=== PATIENT | male | born 1950 | race Caucasian/White ===

== ENCOUNTER 2019-06-17 09:16 | Inpatient (IN) | payer MEDICARE, OTHER ==
[2019-06-17] MEDS ORDERED: SODIUM CHLORIDE 0.9% 1,000 ML IV STA (09:57)
--- NOTE | 2019-06-17 10:00 | ED ---
General Adult HPI - General Chief complaint: Arrhythmia/Palpitations Stated complaint: weakness, fatigue Time Seen by Provider: 06/17/19 09:30 Source: patient Mode of arrival: wheelchair Limitations: no limitations - History of Present Illness Initial comments: Dictation was produced using [employer] dictation software. please excuse any g rammatical, word or spelling errors. Chief Complaint: 68-year-old male with past medical history of dysrhythmia presents with instruction from basket sorter to come to the emergency department for medical evaluation. History of Present Illness: Patient is a 68-year-old male. Patient states he is recently relocated from [place]. Patient has a history of atrial fibrillation, CVA and psychosis of the lungs. Patient had episode of dysrhythmia over the last couple months for which she went to the emergency department and received an injection with improvement of his symptoms. Patient wears a heart monitor. He has had a heart monitor for approximately 4 weeks. Patient received a call from his basket sorter in sending her to come to the emergency department for abnormal heart monitor rhythms. She does not have established care here in town at the moment. Just recently moved to report here on the first month. Last couple days he's been feeling more weak than usual. She feels dehydrated. Patient denies any chest pain or diaphoresis. The ROS documented in this emergency department record has been reviewed and confirmed by me. Those systems with pertinent positive or negative responses have been documented in the HPI. All other systems are other negative and/or no ncontributory. PHYSICAL EXAM: General Impression: Alert and oriented x3, not in acute distress HEENT: Normocephalic atraumatic, extra-ocular movements intact, pupils equal and reactive to light bilaterally, dry mucous membranes Cardiovascular: Heart regular rate and rhythm, S1&S2 audible, no murmurs, rubs or gallops Chest: Lungs clear to auscultation bilaterally, no rhonchi, no wheeze, no rales Abdomen: Bowel sounds present, abdomen soft, non-tender, non-distended, no organomegaly Musculoskeletal: Pulses present and equal in all extremities, no peripheral edema Motor: no focal deficits noted Neurological: CN II-XII grossly intact, no focal motor or sensory deficits noted Skin: Intact with no visualized rashes Psych: Normal affect and mood ED course: male presents with dysrhythmia. Currently wears a heart monitor was called by his basket sorter come to the emergency department for medical evaluation. Vital signs upon arrival are within acceptable limits. Laboratory evaluation obtained. CBC, coag panel unremarkable. Metabolic panel is negative. Patient does have troponin elevation of 0.069. He does not have any chest pain at this time. No shortness of breath or any ACS equivalent symptoms. We were able to get a faxed report of his Holter monitor. It appears that patient had an episode of ventricular tachycardia 425 beats at approximately 10:08 PM. Given elevated troponin and evidence of white count this tachycardia seen on his Holter monitor will plan to have patient admitted to the hospital for cardiology consultation. There does not appear to be any electrolyte abnormalities to have causes at this time. Patient's medications were reviewed he is currently on metoprolol and. dabigatran. She given aspirin for elevated troponin started on heparin for concern of NSTEMI. EKG interpretation: Ventricular rate 76, normal sinus rhythm,. Interval 200, QRS 86, QTC 393. No old EKG for comparison. Patient has Q-wave in lead 3 and aVF. There is a T-wave inversion in lead 3. - Related Data Home Medications Medication Instructions Recorded Confirmed Atorvastatin [Lipitor] 40 mg PO HS 06/17/19 06/17/19 Dabigatran [Pradaxa] 150 mg PO BID 06/17/19 06/17/19 Metoprolol Tartrate [Lopressor] 25 mg PO BID 06/17/19 06/17/19 Allergies Allergy/AdvReac Type Severity Reaction Status Date / Time Penicillins Allergy Unknown Verified 06/17/19 09:50 Review of Systems ROS Statement: Those systems with pertinent positive or pertinent negative responses have been documented in the HPI. ROS Other: All systems not noted in ROS Statement are negative. Past Medical History Past Medical History: Atrial Fibrillation, CVA/TIA Additional Past Medical History / Comment(s): SARCOSIS OF LUNGS History of Any Multi-Drug Resistant Organisms: None Reported Past Surgical History: No Surgical Hx Reported Past Psychological History: No Psychological Hx Reported Smoking Status: Never smoker Past Alcohol Use History: None Reported Past Drug Use History: None Reported General Exam Limitations: no limitations Course Vital Signs 06/17/19 09:19 Temperature 98.5 F Pulse Rate 89 Respiratory 16 Rate Blood Pressure 143/91 O2 Sat by Pulse 93 L Oximetry Medical Decision Making - Lab Data Result diagrams: 06/17/19 09:51 06/17/19 09:51 Lab Results 06/17/19 06/17/19 06/17/19 Range/Units 09:51 09:51 09:51 WBC 8.3 (3.8-10.6) k/uL RBC 4.30 (4.30-5.90) m/uL Hgb 13.2 (13.0-17.5) gm/dL Hct 39.6 (39.0-53.0) % MCV 92.1 (80.0-100.0) fL MCH 30.8 (25.0-35.0) pg MCHC 33.4 (31.0-37.0) g/dL RDW 12.7 (11.5-15.5) % Plt Count 413 (150-450) k/uL Neutrophils % 83 % Lymphocytes % 9 % Monocytes % 5 % Eosinophils % 1 % Basophils % 0 % Neutrophils # 6.9 (1.3-7.7) k/uL Lymphocytes # 0.7 L (1.0-4.8) k/uL Monocytes # 0.4 (0-1.0) k/uL Eosinophils # 0.1 (0-0.7) k/uL Basophils # 0.0 (0-0.2) k/uL PT 11.1 (9.0-12.0) sec INR 1.1 (<1.2) APTT 27.9 (22.0-30.0) sec Sodium 139 (137-145) mmol/L Potassium 4.9 (3.5-5.1) mmol/L Chloride 105 (98-107) mmol/L Carbon Dioxide 22 (22-30) mmol/L Anion Gap 12 mmol/L BUN 14 (9-20) mg/dL Creatinine 0.78 (0.66-1.25) mg/dL Est GFR (CKD-EPI)AfAm >90 (>60 ml/min/1.73 sqM) Est GFR (CKD-EPI)NonAf >90 (>60 ml/min/1.73 sqM) Glucose 109 H (74-99) mg/dL Calcium 9.3 (8.4-10.2) mg/dL Magnesium 2.1 (1.6-2.3) mg/dL Total Bilirubin 1.0 (0.2-1.3) mg/dL AST 71 H (17-59) U/L ALT 102 H (21-72) U/L Alkaline Phosphatase 219 H (38-126) U/L Troponin I (0.000-0.034) ng/mL Total Protein 7.1 (6.3-8.2) g/dL Albumin 3.7 (3.5-5.0) g/dL 06/17/19 Range/Units 09:51 WBC (3.8-10.6) k/uL RBC (4.30-5.90) m/uL Hgb (13.0-17.5) gm/dL Hct (39.0-53.0) % MCV (80.0-100.0) fL MCH (25.0-35.0) pg MCHC (31.0-37.0) g/dL RDW (11.5-15.5) % Plt Count (150-450) k/uL Neutrophils % % Lymphocytes % % Monocytes % % Eosinophils % % Basophils % % Neutrophils # (1.3-7.7) k/uL Lymphocytes # (1.0-4.8) k/uL Monocytes # (0-1.0) k/uL Eosinophils # (0-0.7) k/uL Basophils # (0-0.2) k/uL PT (9.0-12.0) sec INR (<1.2) APTT (22.0-30.0) sec Sodium (137-145) mmol/L Potassium (3.5-5.1) mmol/L Chloride (98-107) mmol/L Carbon Dioxide (22-30) mmol/L Anion Gap mmol/L BUN (9-20) mg/dL Creatinine (0.66-1.25) mg/dL Est GFR (CKD-EPI)AfAm (>60 ml/min/1.73 sqM) Est GFR (CKD-EPI)NonAf (>60 ml/min/1.73 sqM) Glucose (74-99) mg/dL Calcium (8.4-10.2) mg/dL Magnesium (1.6-2.3) mg/dL Total Bilirubin (0.2-1.3) mg/dL AST (17-59) U/L ALT (21-72) U/L Alkaline Phosphatase (38-126) U/L Troponin I 0.069 H* (0.000-0.034) ng/mL Total Protein (6.3-8.2) g/dL Albumin (3.5-5.0) g/dL Disposition Clinical Impression: Ventricular tachycardia, Elevated troponin Disposition: ADMITTED IP TO THIS HOSP Condition: Fair Referrals: None,Stated [Primary Care Provider] - 1-2 days Decision Time: 12:45
[2019-06-17 10:36] LABS: INR 1.1 (<1.2); Partial Thromboplastin Time 27.9 sec (22.0-30.0); Prothrombin Time 11.1 sec (9.0-12.0)
[2019-06-17 10:38] LABS: ALT 102 U/L (21-72); AST 71 U/L (17-59); African American GFR (CKD) >90 (>60 ml/min/1.73 sqM); Albumin 3.7 g/dL (3.5-5.0); Alkaline Phosphatase 219 U/L (38-126); Anion Gap 12 mmol/L; Basophils % (A) 0 %; Blood Urea Nitrogen 14 mg/dL (9-20); Calcium 9.3 mg/dL (8.4-10.2); Carbon Dioxide 22 mmol/L (22-30); Chloride 105 mmol/L (98-107); Eosinophils # (A) 0.1 k/uL (0-0.7); Eosinophils % (A) 1 %; Glucose 109 mg/dL (74-99); HCT 39.6 % (39.0-53.0); HGB 13.2 gm/dL (13.0-17.5); Lymphocytes # (A) 0.7 k/uL (1.0-4.8); Lymphocytes % (A) 9 %; MCH 30.8 pg (25.0-35.0); MCHC 33.4 g/dL (31.0-37.0); MCV 92.1 fL (80.0-100.0); Magnesium 2.1 mg/dL (1.6-2.3); Mean Platelet Volume 6.7; Monocytes # (A) 0.4 k/uL (0-1.0); Monocytes % (A) 5 %; Neutrophils # (A) 6.9 k/uL (1.3-7.7); Neutrophils % (A) 83 %; Platelet Count 413 k/uL (150-450); Potassium 4.9 mmol/L (3.5-5.1); RDW 12.7 % (11.5-15.5); Sodium 139 mmol/L (137-145); Total Protein 7.1 g/dL (6.3-8.2); WBC 8.3 k/uL (3.8-10.6)
--- NOTE | 2019-06-17 12:10 | XR ---
EXAMINATION TYPE: XR chest 2V DATE OF EXAM: 06/17/2019 COMPARISON: NONE HISTORY: Shortness of breath TECHNIQUE: Frontal and lateral views of the chest are obtained. FINDINGS: Scattered senescent parenchymal changes noted. Hyperinflation compatible with COPD. No evidence for infiltrate. No evidence for atelectasis. Heart size is stable. Mediastinal structures are stable and grossly unremarkable. No evidence for hilar prominence. Degenerative changes dorsal spine. IMPRESSION: 1. No evidence for acute pulmonary disease.
[2019-06-17] MEDS ORDERED: ASPIRIN 81 MG PO STA (12:43)
[2019-06-17] MEDS ORDERED: HEPARIN SODIUM,PORCINE 5,000 UNIT/ML 1 ML VIAL IV PRN (12:43)
[2019-06-17] MEDS ORDERED: HEPARIN SODIUM,PORCINE 5,000 UNIT/ML 1 ML VIAL IV ONE (12:43)
[2019-06-17] MEDS ORDERED: NITROGLYCERIN SL TABS 0.4 MG TAB SUBLINGUAL PRN (12:51)
[2019-06-17] MEDS: HEPARIN SOD,PORK IN 0.45% NACL 25,000 UNIT in 0.45% NACL 1 250ML.BAG IV SCH (13:10)
[2019-06-17 16:07] VITALS: BMI 25.7
--- NOTE | 2019-06-17 18:41 | HP ---
HISTORY AND PHYSICAL CHIEF COMPLAINT: Arrhythmia. HISTORY OF PRESENT ILLNESS: This is the first admission for this 68-year-old white male. He recently moved to [place] from [place]. There he had a stroke this December. He has a history of sarcoidosis. During his workup which included a cardiac MRI, there was talk of his needing an ICD. They decided not to place that and started him on medication. He has no history of coronary artery disease, cardiomyopathy, CHF, orthopnea, PND, hypertension, etc. He recently moved here and he has a continuous quality assurance monitor final and he received a call this morning that he had arrhythmia in the "lower part of his heart" and to go straight to the emergency room. He had no syncope, diaphoresis, etc. It was presumed that this was ventricular tachycardia. He feels fine now. REVIEW OF SYSTEMS: He has had CVA and he has no residual sequelae. He has had no change in vision or hearing, lung disease, murmurs, rheumatic fever, etc. He has not had any abdominal pain, food intolerance, nausea, vomiting, hematemesis, melena, hematochezia, jaundice, hematuria, frequency, urgency, renal failure, diabetes, etc. Past medical history, family history, personal and social histories are unremarkable. He is not allergic to any medication and he only takes 3 medications which are on his MAR. He has a family history in that his mother had coronary artery bypass graft and coronary artery disease and his sister had a TIA. He does not smoke or drink. 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 PHYSICAL EXAMINATION: Blood pressure is 138/85 with a pulse of 73 and regular, respirations of 16, he is afebrile. In general, he appeared to be well developed, well nourished, no acute distress. Skin color is normal. Skin is warm, dry. Lymph nodes not enlarged. Head, ears, eyes, nose, mouth, and throat were normal. Neck veins not distended. Carotids normal. Chest is clear to auscultation and percussion. Cardiac exam demonstrated what sounded like normal sinus rhythm with a grade 1/6 systolic murmur and a loud 2nd sound or S4. Abdomen is soft, nontender and no masses or visceromegaly. Extremities: Normal. Neurological is intact. IMPRESSION: 1. Probable and ventricular tachycardia. 2. Likely cardiomyopathy. 3. Previous cerebrovascular accident. 4. Sarcoidosis. PLAN: 1. Bed rest. 2. IV fluids. 3. Cardiac enzymes, BNP, D-dimer, and echocardiogram. 4. Cardiology consult. 5. Pulmonology consult. SULTANA / DORA: [id number] /
[2019-06-17] MEDS: ATORVASTATIN 40 MG TAB PO SCH (20:41)
[2019-06-17] MEDS: METOPROLOL TARTRATE 25 MG TAB PO SCH (20:41)
[2019-06-17] MEDS ORDERED: DABIGATRAN 150 MG CAP PO SCH (21:00)
[2019-06-18 06:43] LABS: HCT 38.6 % (39.0-53.0); HGB 12.5 gm/dL (13.0-17.5); MCH 30.6 pg (25.0-35.0); MCHC 32.4 g/dL (31.0-37.0); MCV 94.3 fL (80.0-100.0); Platelet Count 425 k/uL (150-450); RBC 4.09 m/uL (4.30-5.90); RDW 12.8 % (11.5-15.5); WBC 7.2 k/uL (3.8-10.6)
[2019-06-18 07:00] LABS: African American GFR (CKD) >90 (>60 ml/min/1.73 sqM); Anion Gap 7 mmol/L; Blood Urea Nitrogen 12 mg/dL (9-20); Calcium 8.9 mg/dL (8.4-10.2); Carbon Dioxide 26 mmol/L (22-30); Chloride 106 mmol/L (98-107); Cholesterol 109 mg/dL (<200); Glucose 101 mg/dL (74-99); HDL Cholesterol 33 mg/dL (40-60); LDL Cholesterol,Calculated 64 mg/dL (0-99); Potassium 4.2 mmol/L (3.5-5.1); Sodium 139 mmol/L (137-145); Triglycerides 59 mg/dL (<150)
--- NOTE | 2019-06-18 08:49 | CONS ---
CONSULTATION CHIEF COMPLAINT: Wide-complex tachycardia. Mr. Dutton is a 68-year-old gentleman with history of pulmonary sarcoidosis, possible paroxysmal atrial fibrillation, dyslipidemia, and recent CVA, who presents to hospital because his Holter was abnormal. He lives in [place], has recently moved to [facility] and had an event monitor on. He was called by his physician from [place] and the monitoring folks stating that he had a run of wide-complex tachycardia for which he came to the emergency room. He denies chest pain, difficulty in breathing, palpitations, dizziness or syncope. The patient has known pulmonary sarcoidosis and apparently had a TIA back in December of this year and underwent extensive workup in [place]. I do not have all that information with me at the moment. The patient apparently had a cardiac MRI. I do not have the results with me. There was a question about whether he should have an AICD at that time. There is no history of syncope or sudden . There is no history of coronary artery disease or congestive heart failure. At the time of my evaluation this morning, patient is comfortable at rest, hemodynamically stable and in no apparent distress. He had an EKG that shows normal sinus rhythm and has early repolarization changes. His chest x-ray was unremarkable. His hemoglobin is 12.5, platelet count is 425. Potassium is 4.2. Creatinine is 0.6. He has had 3 sets of troponins that were at 0.06, 0.09 and 0.1. His creatinine is normal at 0.68. I reviewed the rhythm strips. He did have an episode of wide-complex tachycardia, which could be due to an episode of ventricular tachycardia. I talked to patient about undergoing further evaluation. I am going to ask an spinner concrete pipe to evaluate the patient and advised on AICD. I will obtain a 2D echo to document his LV function. If the LV function is normal and there are no wall motion abnormalities, I do not believe the elevated troponin is of any clear clinical significance. However, I talked to patient about undergoing a stress test. He is going to wait and decide on this. PAST MEDICAL HISTORY: Significant for possible paroxysmal atrial fibrillation, dyslipidemia, sarcoidosis. MEDICATIONS: Medications include Lopressor 25 b.i.d., Pradaxa 150 b.i.d., Lipitor 40 q. Daily. ALLERGIES: The patient is allergic to PENICILLIN. FAMILY HISTORY: Negative for premature coronary artery disease. SOCIAL HISTORY: Negative for smoking, EtOH abuse, or drug abuse. REVIEW OF SYSTEMS: HEENT is unremarkable. CARDIAC: As described above. RESPIRATORY: As described above. GI: Negative. GENITOURINARY: Negative. ALLERGY/IMMUNOLOGY: Negative. SKIN: Negative. MUSCULOSKELETAL: Negative. ENDOCRINE: Negative. DERM: Negative. CONSTITUTIONAL: Negative. ONCOLOGICAL: Negative. 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 HEMATOLOGICAL: Negative. Rest of the system review is not relevant. PHYSICAL EXAMINATION: On exam, patient is comfortable at rest. Vital signs are stable. There is no jugular venous distention. Carotid upstroke is normal. There is no bruit. Chest exam reveals good air entry bilaterally. Heart exam reveals first and second heart sounds. No gallop. Abdomen is soft. Examination of extremities did not reveal any edema. Peripheral pulses are felt. EKG is as described above. Labs are as described above. ASSESSMENT: 1. Wide-complex tachycardia. 2. History of atrial fibrillation. 3. Elevated troponins of unclear clinical significance. PLAN: I will continue the IV heparin at this time and once we decide on whether to do a stress test are not done I am going to stop the heparin and resume the Pradaxa. I will ask an spinner concrete pipe to evaluate the patient to see if he needs an EP study for possible AICD. The elevated troponin could be due to sarcoid involvement of his heart. We will try and get old of all his records from [place]. MMODL / IJN: [id number] /
[2019-06-18] MEDS ORDERED: ASPIRIN 325 MG TAB PO SCH (09:00)
[2019-06-18] MEDS: ASPIRIN 81 MG PO SCH (09:47)
[2019-06-18] MEDS: HEPARIN SOD,PORK IN 0.45% NACL 25,000 UNIT in 0.45% NACL 1 250ML.BAG IV SCH (12:12)
[2019-06-18] MEDS: METOPROLOL TARTRATE 25 MG TAB PO SCH ×2 (12:13→20:25)
--- NOTE | 2019-06-18 12:17 | ECHOS ---
STRESS ECHOCARDIOGRAM DATE OF SERVICE: 06/18/2019 INDICATIONS: MEDICATIONS: BASELINE HEART RATE: 91 BASELINE BLOOD PRESSURE: 163/82 MAXIMUM HEART RATE: 145 MAXIMUM BLOOD PRESSURE: 173/92 85% MPHR: 131 100% MPHR: 154 METS: 6.4 MAXIMUM STAGE REACHED: II TOTAL EXERCISE TIME: 4 minutes 57 seconds CLINICAL INFORMATION: Baseline EKG revealed normal sinus rhythm with T-wave inversion in leads in inferior leads as well as anteroapical leads. The patient walked on a standard Miguel protocol for 4 minutes 57 seconds. Developed some fatigue. He did not have any clear-cut angina. Heart rate changed from 91 to 145 beats per minute. Blood pressure changed from 163/82 to 173/92. EKG remained inconclusive, had rare isolated PVCs and one couplet was noted. By EKG criteria, this is an inconclusive stress test because of resting EKG changes. Baseline echo images revealed normal wall motion and wall thickening of all segments. At peak exercise, there was hypokinesia of the anteroseptal portion of the left ventricle which was seen in multiple views. This suggests ischemia probably in the LAD distribution. Clinical correlation is suggested. IMPRESSION: 1. Limited exercise capacity with inconclusive stress test by EKG criteria because of resting EKG changes. 2. Anteroseptal hypokinesia is noted suggestive of ischemia in the LAD distribution. Clinical correlation is suggested. SULTANA / DORA: [id number] /
[2019-06-18] MEDS ORDERED: SODIUM CHLORIDE 0.9% 1,000 ML in EMPTY BAG 1 BAG IV ONE (14:57)
[2019-06-18] MEDS ORDERED: ALPRAZolam 0.5 MG TAB PO PRN (14:57)
[2019-06-18] MEDS ORDERED: NITROGLYCERIN SL TABS 0.4 MG TAB SUBLINGUAL PRN (14:57)
[2019-06-18] MEDS ORDERED: ATORVASTATIN 80 MG TAB PO STA (14:57)
[2019-06-18] MEDS ORDERED: ASPIRIN 325 MG TAB PO STA (14:57)
[2019-06-18] MEDS ORDERED: ALPRAZolam 0.25 MG TAB PO PRN (14:57)
--- NOTE | 2019-06-18 14:59 | PN ---
PROGRESS NOTE CHIEF COMPLAINT: Ventricular arrhythmia. HISTORY OF PRESENT ILLNESS: This gentleman feels fine and he has had no difficulties during the night. He has been seen by Cardiology and they are suggesting starting with a stress test. The patient's sisters are here with him and they are pushing for him to go to [place]. They are on the phone with Cardiology friend on the [facility]. PHYSICAL EXAM: His chest is clear. Cardiac exam is unchanged and the abdomen is soft, nontender. IMPRESSION: Probable ventricular arrhythmia with ventricular tachycardia. PLAN: We will have a lengthy discussion with the patient and sisters. It seems reasonable for him to go ahead with a stress study here. If it is abnormal, they understand that he may require a cardiac cath and the patient is willing to do that here. The next consideration would be whether or not sooner later he should have an ICD. Cardiology will go ahead with a stress study and will move forward on further diagnostic and treatment plans based on the outcome. MMBALDEV / TEQUILAN: [id number] /
--- NOTE | 2019-06-18 15:25 | P.CNPUL ---
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 Patient lives in [place], [place], but is currently in the process of relocating to [place], [place]. Patient was asymptomatic, denied any chest pain, denied any shortness of breath, he states he did feel a little fatigued after long drive from [place], and he was just resting at home, he attributed his fatigue to hot weather. Patient has a history of lung sarcoidosis, first diagnosed in 2009 and was treated with steroids for 2-1/2 years, with most recent CT of the chest from January 2019, reportedly showing decrease in the hilar lymphadenopathy. The report is not available to us, it was done in [place] by the patient's treating is analyst. Patient does report history of transthoracic biopsy confirming the diagnosis of sarcoidosis back in 2009. Patient denies any pulmonary symptoms, no shortness of breath, no chest pain, no hemoptysis, he is very acti ve on a regular basis, he does of outdoor activities, hiking, biking and walking, he used to jog. He did have a stroke in December 2018, with no apparent deficits. Patient was recently at his is analyst office in [place] in April 2019 for a regular checkup, he had a cardiac MRI which was repor tedly normal, he reports his eyes checked and there was no ocular involvement, CT chest as mentioned above showed decrease in the hilar lymphadenopathy. However patient was noted to be tachycardic with a rate of 170 BPM, was sent down to the emergency department for evaluation, and was given an injection which helped decrease the heart rate. The details of this incident are not known to us. Since then patient was put on a continuous monitor, with which he traveled to [place]. In the emergency department CBC and coag panel were unremarkable, metabolic panel was negative, there was a troponin elevation of 0.118, of 0.090, 0.069. EKG showed normal sinus rhythm with Q waves in leads 3 and aVF and a T-wave inversion in lead 3. The patient had a run of wide-complex tachycardia lasting around 25 seconds on the continuous monitor. He has been evaluated by cardiology and underwent stress echocardiogram, which showed anteroseptal hypokinesia suggestive of ischemia in the LAD distribution. The patient is being scheduled for cardiac catheterization tomorrow. From pulmonary perspective patient denies any shortness of breath, no chest pain, he is a lifetime nonsmoker. We are consulte d for patient's history of pulmonary fibrosis, which appears to be nonactive at this time Review of Systems All systems: negative Constitutional: Reports fatigue, Denies chills, Denies fever Eyes: denies blurred vision, denies pain Ears, nose, mouth and throat: Denies headache, Denies sore throat Cardiovascular: Denies chest pain, Denies shortness of breath Respiratory: Denies cough Gastrointestinal: Denies abdominal pain, Denies diarrhea, Denies nausea, Denies vomiting Musculoskeletal: Denies myalgias Integumentary: Denies pruritus, Denies rash Neurological: Denies numbness, Denies weakness Psychiatric: Denies anxiety, Denies depression Endocrine: Denies fatigue, Denies weight change Past Medical History Past Medical History: Atrial Fibrillation, CVA/TIA Additional Past Medical History / Comment(s): SARCOSIS OF LUNGS History of Any Multi-Drug Resistant Organisms: None Reported Past Surgical History: No Surgical Hx Reported Additional Past Surgical History / Comment(s): had osteomylitis in back which required surgery, then had to have a surgery for a herniated disc. Also lasik surgery Past Anesthesia/Blood Transfusion Reactions: No Reported Reaction Past Psychological History: No Psychological Hx Reported Smoking Status: Never smoker Past Alcohol Use History: None Reported Past Drug Use History: None Reported - Past Family History Mother Additional Family Medical History / Comment(s): CABG Father Family Medical History: COPD Additional Family Medical History / Comment(s): heavy smoker Medications and Allergies Home Medications Medication Instructions Recorded Confirmed Type Atorvastatin [Lipitor] 40 mg PO HS 06/17/19 06/17/19 History Dabigatran [Pradaxa] 150 mg PO BID 06/17/19 06/17/19 History Metoprolol Tartrate [Lopressor] 25 mg PO BID 06/17/19 06/17/19 History Allergies Allergy/AdvReac Type Severity Reaction Status Date / Time Penicillins Allergy Unknown Verified 06/17/19 09:50 Physical Exam Vitals: Vital Signs Temp Pulse Resp BP Pulse Ox 06/18/19 12:00 99.4 F 86 18 115/77 97 06/18/19 08:00 98.2 F 86 18 130/86 98 06/18/19 04:00 76 17 137/87 93 L 06/18/19 00:00 98.1 F 65 18 128/81 96 06/17/19 20:00 98.3 F 74 17 126/81 93 L 06/17/19 16:10 98 Intake and Output 06/17/19 06/18/19 06/18/19 22:59 06:59 14:59 Intake Total 315.667 50.994 363.339 Balance 315.667 50.994 363.339 Intake: Intake, IV Titration 75.667 50.994 123.339 Amount Heparin Sod,Pork in 0.45% 75.667 50.994 123.339 NaCl 25,000 unit In 0.45 % NaCl 1 250ml.bag @ 11. 917 UNITS/KG/HR 10 mls/hr IV .Q24H [facility] Rx#: [id number] Oral 240 240 Other: # Voids 1 1 Weight 81.1 kg 80.739 kg GENERAL EXAM: Alert, pleasant, 68-year-old comfortable in no apparent distress. HEAD: Normocephalic/atraumatic. EYES: Normal reaction of pupils, equal size. Conjunctiva pink, sclera white. NOSE: Clear with pink turbinates. THROAT: No erythema or exudates. NECK: No masses, no JVD, no thyroid enlargement, no adenopathy. CHEST: No chest wall deformity. Symmetrical expansion. LUNGS: diminished air entry with no crackles, wheeze, rhonchi or dullness. CVS: Regular rate and rhythm, normal S1 and S2, no gallops, no murmurs, no rubs ABDOMEN: Soft, nontender. No hepatosplenomegaly, normal bowel sounds, no guarding or rigidity. EXTREMITIES: No clubbing, no edema, no cyanosis, 2+ pulses and upper and lower extremities. MUSCULOSKELETAL: Muscle strength and tone normal. SPINE: No scoliosis or deformity SKIN: No rashes CENTRAL NERVOUS SYSTEM: Alert and oriented -3. No focal deficits, tone is normal in all 4 extremities. PSYCHIATRIC: Alert and oriented -3. Appropriate affect. Intact judgment and insight. Results - Laboratory Findings CBC and BMP: 06/18/19 05:56 06/18/19 05:56 PT/INR, D-dimer PT 11.1 sec (9.0-12.0) 06/17/19 09:51 INR 1.1 (<1.2) 06/17/19 09:51 Abnormal lab findings: Abnormal Labs 06/17/19 06/17/19 06/17/19 09:51 09:51 09:51 RBC Hgb Hct Lymphocytes # 0.7 L APTT Glucose 109 H AST 71 H ALT 102 H Alkaline Phosphatase 219 H Troponin I 0.069 H* HDL Cholesterol 06/17/19 06/17/19 06/17/19 15:47 19:07 21:56 RBC Hgb Hct Lymphocytes # APTT 40.3 H Glucose AST ALT Alkaline Phosphatase Troponin I 0.090 H* 0.118 H* HDL Cholesterol 06/18/19 06/18/19 06/18/19 00:29 05:56 05:56 RBC 4.09 L Hgb 12.5 L Hct 38.6 L Lymphocytes # APTT 46.9 H Glucose 101 H AST ALT Alkaline Phosphatase Troponin I HDL Cholesterol 33 L 06/18/19 05:56 RBC Hgb Hct Lymphocytes # APTT 58.3 H Glucose AST ALT Alkaline Phosphatase Troponin I HDL Cholesterol - Diagnostic Findings Chest x-ray: report reviewed, image reviewed Additional studies: ekg reviewed Assessment and Plan Plan: Assessment: #1. History of pulmonary sarcoidosis, currently inactive #2. Wide-complex tachycardia #3. Elevated troponins, rule out non-ST elevated [place], stress echo showed anteroseptal hypokinesia suggestive of ischemia in the LAD distribution #4. History of atrial fibrillation on Pradaxa #5. History of CVA in December 2018 #6. Lifetime nonsmoker Plan: Patient denies any pulmonary complaints at this time, no shortness of breath, no cough, no chest pain. Chest x-ray has been reviewed showing no acute pulmonary disease. We'll try to obtain his latest CAT scan from January 2019 which was reportedly showing improvement in the hilar lymphadenopathy. Patient's sarcoidosis appears to be inactive at this time, there is no urgency to repeat the CAT scan of the chest. We'll follow along with cardiology, and patient is being scheduled for cardiac catheterization with the possibility of PCI and stenting. I performed a history & physical examination of the patient and discussed their management with my nurse practitioner, Jennifer Clarke. I reviewed the nurse practitioner's note and agree with the documented findings and plan of care. Lung sounds are positive for diminished. The findings and the impression was discussed with the patient. I attest to the documentation by the nurse practitioner. Time with Patient: Greater than 30
[2019-06-18] MEDS: ATORVASTATIN 40 MG TAB PO SCH (20:25)
[2019-06-19] MEDS: METOPROLOL TARTRATE 25 MG TAB PO SCH ×2 (05:59→20:48)
[2019-06-19] MEDS: ASPIRIN 81 MG PO SCH (06:01)
[2019-06-19 07:41] LABS: HCT 39.8 % (39.0-53.0); HGB 12.7 gm/dL (13.0-17.5); MCH 30.3 pg (25.0-35.0); MCHC 31.9 g/dL (31.0-37.0); MCV 94.9 fL (80.0-100.0); Mean Platelet Volume 7.5; Platelet Count 424 k/uL (150-450); RBC 4.19 m/uL (4.30-5.90); RDW 12.7 % (11.5-15.5); WBC 7.2 k/uL (3.8-10.6)
--- NOTE | 2019-06-19 08:30 | P.CRDCN ---
History of Present Illness History of present illness: This is Dr. Slater dictating a consult on this patient The patient was interviewed and examined by me IMPRESSION / ASSESSMENT: Abnormal stress echo with ischemia in the LAD territory History of wide complex tachycardia on event monitor History of paroxysmal atrial fibrillation History of pulmonary sarcoidosis Borderline troponins History of stroke in December and Pradaxa was prescribed Patient carries a diagnosis of paroxysmal atrial fibrillation History of the tachycardia documented on 12-lead ECG the triggered a cardiac MRI evaluation PLAN: Records From [place] including cardiac MRI, ECG strips of the event monitor and other records 2-D echo and Doppler study to assess cardiac structure and function Obtain records from [place] Re: The stroke that he had in December and the proof of atrial fibrillation that led them to prescribe Pradaxa for stroke prevention 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 specifically the 12-lead ECG which tri ggered the transfer to a hospital and a cardiac MRI Report of the cardiac MRI Address the abnormal stress test appropriately Reevaluate thereafter HPI Patient instructed to come to the hospital by his capacity management specialist in [place] after wide complex tachycardia that was seen on event monitor Patient denies any symptoms of syncope dizziness lightheadedness loss of consciousness chest discomfort angina palpitations and fluttering in the neck According to his sister he is a bit fatigued Earlier this year he had a stroke and was placed on Pradaxa. He's had a rapid heartbeat at 170 beats a minute, 12-lead ECG was performed at the lay out carpenter office. He is feeling a little warm but mostly minimally symptomatic and was transferred to the hospital. At that time a cardiac MRI was also performed Here his troponins are abnormal, the precordial ST segments are abnormal and his stress echo is abnormal and suggests ischemia in the LAD territory ROS: No fever chills or rigors, no cough, phlegm or expectoration, no nausea, vomiting or diarrhea, no hematuria, dysuria, no musculoskeletal complaints, no strokes or seizures, no skin lesions. EXAMINATION: Blood pressure 143 was 60 mmHg respirations 17 pulse rate in the 60s afebrile 98.2F Normal heart sounds normal S1 normal S2 no murmurs gallop or rub Breath sounds are clear no rhonchi no crackles Extremity is warm no edema Abdomen soft nontender REVIEW OF LABS, ECG & MEDICAL DATA twelve-lead ECG shows sinus rhythm normal IA interval narrow QRS baseline artifact, T-wave inversions in the inferior leads and inverted T waves/biphasic ST-T segments V3 V4 and V5, no QRS fractionation History of pulmonary sarcoidosis History of wide complex tachycardia noted on event monitor which was performed in [place]. Patient recently moved [place] Abnormal stress echo with ischemia in the anterior wall/LAD territory Labs reviewed troponin 0.069, 0.09 and 0.118 Normal electrolytes hemoglobin normal LDL 64 on atorvastatin Patient did Pradaxa for stroke prevention of atrial fibrillation Past Medical History Past Medical History: Atrial Fibrillation, CVA/TIA Additional Past Medical History / Comment(s): SARCOSIS OF LUNGS History of Any Multi-Drug Resistant Organisms: None Reported Past Surgical History: No Surgical Hx Reported Additional Past Surgical History / Comment(s): had osteomylitis in back which required surgery, then had to have a surgery for a herniated disc. Also lasik surgery Past Anesthesia/Blood Transfusion Reactions: No Reported Reaction Past Psychological History: No Psychological Hx Reported Smoking Status: Never smoker Past Alcohol Use History: None Reported Past Drug Use History: None Reported - Past Family History Mother Additional Family Medical History / Comment(s): CABG Father Family Medical History: COPD Additional Family Medical History / Comment(s): heavy smoker Medications and Allergies Home Medications Medication Instructions Recorded Confirmed Type Atorvastatin [Lipitor] 40 mg PO HS 06/17/19 06/17/19 History Dabigatran [Pradaxa] 150 mg PO BID 06/17/19 06/17/19 History Metoprolol Tartrate [Lopressor] 25 mg PO BID 06/17/19 06/17/19 History Allergies Allergy/AdvReac Type Severity Reaction Status Date / Time Penicillins Allergy Unknown Verified 06/17/19 09:50 Physical Exam Vitals: Vital Signs Temp Pulse Resp BP Pulse Ox 06/19/19 04:00 98.2 F 17 143/60 92 L 06/19/19 00:00 63 17 141/76 98 06/18/19 20:00 98.3 F 68 17 140/83 94 L 06/18/19 16:00 98.4 F 70 18 133/88 94 L 06/18/19 12:00 99.4 F 86 18 115/77 97 06/18/19 08:00 98.2 F 86 18 130/86 98 Intake and Output 06/18/19 06/19/19 06/19/19 22:59 06:59 14:59 Intake Total 250 Balance 250 Intake: Oral 250 Other: # Voids 1 1 Weight 81.3 kg Results 06/19/19 06:05 06/18/19 05:56 Coagulation 06/19/19 Range/Units 06:05 APTT 71.0 H (22.0-30.0) sec CBC 06/19/19 Range/Units 06:05 WBC 7.2 (3.8-10.6) k/uL RBC 4.19 L (4.30-5.90) m/uL Hgb 12.7 L (13.0-17.5) gm/dL Hct 39.8 (39.0-53.0) % Plt Count 424 (150-450) k/uL Current Medications Generic Name Dose Route Start Last Admin Trade Name Freq PRN Reason Stop Dose Admin Alprazolam 0.25 mg 06/18/19 14:57 Xanax PO Q6HR PRN Mild Anxiety Alprazolam 0.5 mg 06/18/19 14:57 Xanax PO Q6HR PRN Moderate Anxiety Aspirin 81 mg 06/18/19 09:00 06/19/19 06:01 Aspirin PO Not Given DAILY [facility] Atorvastatin Calcium 40 mg 06/17/19 21:00 06/18/19 20:25 Lipitor PO 40 mg HS [facility] Administration Heparin Sodium (Porcine) 0 unit 06/17/19 12:43 Heparin IV PER PROTOCOL PRN Low PTT Protocol Heparin Sodium/Sodium Chloride 250 mls @ 10 mls/hr 06/17/19 12:45 06/18/19 12:12 25,000 unit/ Sodium Chloride IV 15.917 units/kg/hr .Q24H [facility] 13.357 mls/hr Administration Protocol 11.917 UNITS/KG/HR Metoprolol Tartrate 25 mg 06/17/19 21:00 06/19/19 05:59 Lopressor PO 25 mg BID [facility] Administration Nitroglycerin 0.4 mg 06/18/19 14:57 Nitrostat SUBLINGUAL Q5M PRN Chest Pain Intake and Output 06/18/19 06/19/19 06/19/19 22:59 06:59 14:59 Intake Total 250 Balance 250 Intake: Oral 250 Other: # Voids 1 1 Weight 81.3 kg 06/19/19 06:05 06/18/19 05:56
[2019-06-19] MEDS ORDERED: fentaNYL (PF) 50 MCG/ML 2 ML AMP ONE (08:49)
[2019-06-19] MEDS ORDERED: IV FLUID CONTINUATION 200 ML IV ONE (08:51)
[2019-06-19] MEDS ORDERED: fentaNYL (PF) 50 MCG/ML 2 ML AMP IV ONE (09:23)
[2019-06-19] MEDS ORDERED: MIDAZOLAM (PF) 2 MG/2 ML VIAL IV ONE (09:23)
[2019-06-19] MEDS ORDERED: LIDOCAINE 1% INJ 10MG/ML (20 ML MDV) SQ ONE (09:25)
[2019-06-19] MEDS ORDERED: IOPAMIDOL-370 125ML BTL INJ ONE (09:51)
[2019-06-19] MEDS ORDERED: RX INFO: IV CONTRAST WAS GIVEN 1 EACH MISC MISCELLANE PRN (09:58)
--- NOTE | 2019-06-19 10:22 | CC ---
CARDIAC CATHETERIZATION REPORT CARDIAC CATHETERIZATION: INDICATION: Ventricular tachycardia with abnormal stress test. PROCEDURE NOTE: After obtaining informed consent, left heart catheterization, coronary angiogram are performed via the right femoral artery using standard Bobo catheters. Patient tolerated the procedure well without any obvious immediate complications. A femoral angiogram was performed and Angio-Seal was deployed for hemostasis. Patient received moderate conscious sedation. Total sedation time was 11 minutes. FINDINGS: HEMODYNAMICS: Left ventricular end-diastolic pressure is 8 to 12 mm. There is no significant gradient across the aortic valve. LEFT VENTRICULOGRAM: Left ventriculogram is not performed. ANGIOGRAPHIC DATA: Left main coronary artery appears calcified, shows moderate atherosclerotic plaque with distal left main stenosis of about 30%, divides into left anterior descending coronary artery and circumflex coronary artery. There is moderate to severe disease involving the ostial portion of the LAD, gives off a large caliber diagonal branch and after that appears occluded. The diagonal branch has a 70% stenosis. Circumflex coronary artery shows mild nonobstructive disease. Right coronary artery is a large dominant vessel, shows a 90%-95% focal stenosis with collaterals to the distal LAD. CONCLUSION: Severe two vessel coronary artery disease as described above with chronic occlusion of the left anterior descending artery, [id number] collaterals, 95% stenosis involving right coronary artery and severe disease involving diagonal branch. PLAN: The patient will need and would benefit from bypass surgery. I am going to ask the cardiothoracic surgeon to evaluate the patient and advise on bypass. Patient has a history of recent CVA, but has recovered from it fully and also carries a history of paroxysmal atrial fibrillation. MMODL / IJN: [id number] /
[2019-06-19] MEDS: SODIUM CHLORIDE 0.9% 1,000 ML IV SCH (11:07)
[2019-06-19] MEDS: HEPARIN SOD,PORK IN 0.45% NACL 25,000 UNIT in 0.45% NACL 1 250ML.BAG IV SCH (11:07)
--- NOTE | 2019-06-19 13:31 | PN ---
PROGRESS NOTE CHIEF COMPLAINT: Ventricular tachycardia. HISTORY OF PRESENT ILLNESS: This gentleman is going for further studies today. He has had no symptoms or difficulty including palpitations, syncope, chest pain, etc. PHYSICAL EXAM: Chest is clear. Cardiac exam is normal. Abdomen is soft, nontender. IMPRESSION: 1. Ventricular tachycardia. 2. Coronary artery disease. PLAN: Await results of cardiac cath. MMODL / IJN: [id number] /
--- NOTE | 2019-06-19 14:32 | P.GSCN ---
History of Present Illness Consult date: 06/19/19 Reason for Consult: Coronary artery disease, surgical revascularization recommendations Requesting physician: Sabino Mejias History of present illness: This is a 68-year-old active gentleman who recently moved to [place] from [place] approximately 1 month ago. He has a previous medical history of CVA in December 2018 with complete recovery, questionable paroxysmal atrial fibrillation, sarcoidosis diagnosed in 2009, and recent episodes of ventricular tachycardia caught on Holter monitor, as well as significant family history of coronary artery disease and carotid artery disease. 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 Apparently in December 2018 the patient had a stroke with quick recovery. Symptoms consisted of bilateral weakness to his hands and feet along with slurred speech. He was started on Lipitor and anti-platelet therapy by his physician in [place]. In April of this year while still in [place] he was at his glost kiln operator's office and was noted to have tachycardia and was sent to the emergency room where he was treated with IV medication. He was admitted for a few days until stable, and was discharged on Lipitor, Lopressor, and Pradaxa, but no anti-platelet therapy. In addition, he was placed on a Holter monitor. Two weeks later he moved back to [place]. Yesterday morning he was called from his physician in [place] and was told to report to the emergency room due to heart arrhythmia. In the emergency room an EKG was completed demonstrating sinus rhythm with T- wave inversions in the inferior leads. Report was obtained from the monitoring company and the patient did have a run of monomorphic V. tach. The patient denied any chest pain, shortness of breath, or any other symptomatology. He was admitted for evaluation and treatment. A stress echo was completed, there was evidence of hypokinesia in the anterior septal portion of the left ventricle suggestive of LAD distribution ischemia. He was recommended to undergo heart catheterization which was completed this morning and which demonstrated a calcified left main with distal left main stenosis 30%, ostial LAD with moderate to severe disease, diagonal stenosis 70%, and the RCA with 90-95% focal stenosis with collaterals to the distal LAD. Dr. Page from cardiothoracic surgery was consulted regarding surgical revascularization recommendations. Review of Systems Review of systems was completed and was negative except as noted. 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 Also lasik surgery Past Anesthesia/Blood Transfusion Reactions: No Reported Reaction Past Psychological History: No Psychological Hx Reported Smoking Status: Never smoker Past Alcohol Use History: None Reported Past Drug Use History: None Reported - Past Family History Mother Family Medical History: Coronary Artery Disease (CAD) Additional Family Medical History / Comment(s): CABG Father Family Medical History: COPD Additional Family Medical History / Comment(s): heavy smoker Sister(s) Family Medical History: CVA/TIA Brother(s) Additional Family Medical History / Comment(s): Carotid disease Medications and Allergies Home Medications Medication Instructions Recorded Confirmed Type Atorvastatin [Lipitor] 40 mg PO HS 06/17/19 06/17/19 History Dabigatran [Pradaxa] 150 mg PO BID 06/17/19 06/17/19 History Metoprolol Tartrate [Lopressor] 25 mg PO BID 06/17/19 06/17/19 History Allergies Allergy/AdvReac Type Severity Reaction Status Date / Time Penicillins Allergy Unknown Verified 06/17/19 09:50 Surgical - Exam Vital Signs Temp Pulse Resp BP Pulse Ox 98.5 F 89 16 143/91 93 L 06/17/19 09:19 06/17/19 09:19 06/17/19 09:19 06/17/19 09:19 06/17/19 09:19 - General well developed, well nourished, no distress, no pain - Eyes PERRL, normal ocular movement - ENT no hearing loss - Neck no masses, no bruits, trachea midline - Respiratory Lungs sounds clear bilaterally. Respirations even, nonlabored. Currently on room air with oxygen saturation 93%. No chest wall deformities. - Cardiovascular S1, S2 present. Regular rate and rhythm, sinus rhythm on telemetry. Palpable peripheral pulses bilaterally. No edema present. No calf pain or tenderness noted. No varicosities to the lower extremities - Abdomen Abdomen: soft, non tender, bowel sounds - Genitourinary Deferred - Rectum Deferred - Integumentary Right femoral artery heart catheterization site soft, nontender, no drainage. no rash, no growths - Neurologic normal coordination, normal sensation - Musculoskeletal normal posture - Psychiatric oriented to time, oriented to person, oriented to place, speech is normal, memory intact Results - Labs 06/19/19 06:05 06/18/19 05:56 Abnormal Lab Results - Last 24 Hours (Table) 06/19/19 06/19/19 Range/Units 06:05 06:05 RBC 4.19 L (4.30-5.90) m/uL Hgb 12.7 L (13.0-17.5) gm/dL APTT 71.0 H (22.0-30.0) sec - Imaging Chest x-ray: report reviewed, image reviewed EKG: image reviewed Additional studies: Heart catheterization films reviewed Assessment and Plan Assessment: 1. Coronary artery disease 2. Basilar artery stenosis, status post CVA in December 2018 3. Nonsustained ventricular tachycardia 4. History of paroxysmal atrial fibrillation versus NSVT 5. History of sarcoidosis 6. Significant family history of coronary artery disease and carotid artery disease Plan: The patient was seen and examined at the bedside. Chart/diagnostics were reviewed. The usual perioperative course for coronary artery bypass graft surgery was discussed with the patient and his sisters, risks and benefits were reviewed in detail, all questions were answered. The patient was seen by Dr. Page who reviewed the patient's complete history and discussed options of coronary artery bypass graft surgery as well as possible stenting to the right coronary artery. The patient has significant risk of stroke secondary to basilar artery stenosis which, per the patient and his sisters, is estimated to be at 98%. The patient and his family requested transfer to [facility] under the care of Dr. Dawson per the recommendation of a vascular surgeon that they know. Dr. Page called Dr. Dawson to discuss the patient's case. Record requests from patient's physicians in [place] have been sent. CT of the patient's films from [facility] in December 2018 are being uploaded for view into our system. The patient's wishes were discussed in detail with Dr. Mejias as well. The patient may be transferred for further evaluation at the [facility] per Dr. Dawson when there is bed availability. If the patient changes his mind, we would be more than happy to complete preoperative testing and evaluate him for surgery here at [facility]. Thank you Dr. Mejias for this consult. Please contact us with any further questions or concerns. Time with Patient: Greater than 30
[2019-06-19] MEDS: ATORVASTATIN 40 MG TAB PO SCH (20:48)
[2019-06-20] MEDS: SODIUM CHLORIDE 0.9% 1,000 ML IV SCH ×2 (04:03→23:12)
[2019-06-20] MEDS: HEPARIN SOD,PORK IN 0.45% NACL 25,000 UNIT in 0.45% NACL 1 250ML.BAG IV SCH ×2 (04:06→23:13)
[2019-06-20] MEDS: ASPIRIN 81 MG PO SCH (08:53)
[2019-06-20] MEDS: METOPROLOL TARTRATE 25 MG TAB PO SCH ×2 (08:53→20:52)
--- NOTE | 2019-06-20 10:20 | P.PN ---
Subjective Progress Note Date: 06/20/19 This is a 68-year-old gentleman who was admitted to the hospital with a wide complex tachycardia detected on his heart monitor, he was contacted by his drum filler and advised to come to the emergency room. Patient lives in [facility], is relocating to [facility]. He does have history of lung sarcoidosis first diagnosed in 2009 and was treated with steroids for 2- 1/2 years with the most recent CT of the chest from January 2019 reportedly showing decrease in the hilar lymphadenopathy. Patient also has a history of paroxysmal atrial fibrillation, he had a stroke in December for which he was taking Pradaxa for anticoagulation. We are still awaiting records from [place], we did receive one copy of the rhythm strip performed which revealed a ventricular tachycardia. Patient underwent a stress echocardiographic study which was reported to be positive and for this reason underwent a cardiac catheterization by Dr. Sams which revealed severe two-vessel coronary artery disease with chronic occlusion of the left anterior descending artery, right to left collaterals, 95% stenosis involving the right coronary artery and severe disease involving the diagonal branch. A consultation with cardiothoracic surgery was requested, they did see the patient in consultation yesterday. The patient however wishes to be transferred to [facility], and we are awaiting a bed. This morning he was seen and examined, denied any chest pain or difficulty in breathing, no dizziness or lightheadedness. Let pressure 140/80 with a heart rate in the 70s, 94% on room air. Objective - Vital Signs Vital signs: Vital Signs Temp 98 F 06/20/19 08:00 Pulse 75 06/20/19 08:00 Resp 20 06/20/19 08:00 BP 141/88 06/20/19 08:00 Pulse Ox 94 L 06/20/19 08:00 Intake & Output 06/19/19 06/20/19 06/20/19 18:59 06:59 18:59 Intake Total 220 226.846 Output Total 450 Balance 220 -223.154 Weight 81.2 kg Intake: IV 100 Intake, IV Titration 226.846 Amount Heparin Sod,Pork in 0.45% 226.846 NaCl 25,000 unit In 0.45 % NaCl 1 250ml.bag @ 11. 917 UNITS/KG/HR 10 mls/hr IV .Q24H [facility] Rx#: [id number] Oral 120 Output: Urine 450 Other: Voiding Method Toilet # Voids 0 2 # Bowel Movements 0 - Exam HEAD: Normocephalic/atraumatic. EYES: Normal reaction of pupils, equal size. Conjunctiva pink, sclera white. NOSE: Clear with pink turbinates. THROAT: No erythema or exudates. NECK: No masses, no JVD, no thyroid enlargement, no adenopathy. CHEST: No chest wall deformity. Symmetrical expansion. LUNGS: diminished air entry with no crackles, wheeze, rhonchi or dullness. CVS: Regular rate and rhythm, normal S1 and S2, no gallops, no murmurs, no rubs ABDOMEN: Soft, nontender. No hepatosplenomegaly, normal bowel sounds, no guarding or rigidity. EXTREMITIES: No clubbing, no edema, no cyanosis, 2+ pulses and upper and lower extremities. MUSCULOSKELETAL: Muscle strength and tone normal. SPINE: No scoliosis or deformity SKIN: No rashes CENTRAL NERVOUS SYSTEM: Alert and oriented -3. No focal deficits, tone is normal in all 4 extremities. PSYCHIATRIC: Alert and oriented -3. Appropriate affect. Intact judgment and insight. - Labs CBC & Chem 7: 06/19/19 06:05 06/18/19 05:56 Labs: Abnormal Lab Results - Last 24 Hours (Table) 06/19/19 06/20/19 Range/Units 16:40 05:43 APTT 55.0 H 58.6 H (22.0-30.0) sec Assessment and Plan Plan: Assessment and plan #1 wide-complex tachycardia suggesting ventricular tachycardia #2 paroxysmal atrial fibrillation #3 pulmonary sarcoidosis #4 positive stress echocardiographic study with subsequent cardiac catheterization which revealed two-vessel coronary artery disease #5 hyperlipidemia Plan The patient had been seen in consultation by cardiothoracic surgery however his wishes are to be transferred to [facility], we are awaiting a bed for transfer, patient will not be able to be discharged home prior to being transferred. DNP note has been reviewed, I agree with a documented findings and plan of care. Patient was seen and examined.
--- NOTE | 2019-06-20 15:20 | P.PN ---
Subjective Progress Note Date: 06/20/19 68-year-old male patient was diagnosed having coronary artery disease who presented with wide complex tachycardia. I was involved in the case because of his underlying sarcoidosis. The patient's overdose was diagnosed in the year 2077 to [place]. At that time a lung biopsy was done. The patient had no other diastases in the right lower lobe area. The diagnosis was consistent with sarcoidosis as the patient also had hilar lymphadenopathy. He was treated with steroids and he had excellent clinical response and subsequent CAT scans have shown resolution of the pulmonary lesions according to the patient. The patient did not have any extra pulmonary manifestations sarcoidosis. He was being followed up by his labview programmer [facility]. He has not required any further in a suppressive agents. No carotid involvement and the patient has seen recently his biomedical equipment specialist. No kidney stones. No hypercalcemia. No LFT abnormalities. No skin lesions. No other issues otherwise for now. Currently the patient has severe 2 vessel disease and he is being considered for cardiac bypass surgery at [facility]. The patient is feeling of any chest pain. No further cardiac arrhythmias have been noted. He is in the hospital awaiting to be transferred. Chest x-ray was noted and there is no acute abnormalities. Objective - Vital Signs Vital signs: Vital Signs Temp 98.3 F 06/20/19 11:42 Pulse 64 06/20/19 11:42 Resp 20 06/20/19 11:42 BP 121/77 06/20/19 11:42 Pulse Ox 95 06/20/19 11:42 Intake & Output 06/19/19 06/20/19 06/20/19 18:59 06:59 18:59 Intake Total 220 208.190 3440.8 Output Total 450 400 Balance 220 -223.154 750.8 Weight 81.2 kg Intake: IV 100 106.8 Heparin Sod,Pork in 0.45% 106.8 NaCl 25,000 unit In 0.45 % NaCl 1 250ml.bag @ 11. 917 UNITS/KG/HR 10 mls/hr IV .Q24H [facility] Rx#: [id number] Intake, IV Titration 226.846 600 Amount Heparin Sod,Pork in 0.45% 226.846 NaCl 25,000 unit In 0.45 % NaCl 1 250ml.bag @ 11. 917 UNITS/KG/HR 10 mls/hr IV .Q24H [facility] Rx#: [id number] Sodium Chloride 0.9% 1, 600 000 ml @ 75 mls/hr IV . [id number] [facility] Rx#:[id number] Oral 120 444 Output: Urine 450 400 Other: Voiding Method Toilet # Voids 0 2 # Bowel Movements 0 - Exam The patient appeared well nourished and normally developed. Vital signs as documented. Head exam is unremarkable. No scleral icterus or corneal arcus noted. Neck is without jugular venous distension, thyromegaly, or carotid bruits. Carotid upstrokes are brisk bilaterally. Lungs are clear to auscultation and percussion. Cardiac exam reveals the PMI to be normally sized and situated. Rhythm is regular. First and second heart sounds normal. No murmurs, rubs or gallops. Abdominal exam reveals normal bowel sounds, no masses, no organomegaly and no aortic enlargement. Extremities are nonedematous and both femoral and pedal pulses are normal.Examination of the skin revealed no evidence of significant rashes, suspicious appearing nevi or other concerning lesions. Neurologically awake and alert and there is no focal neurological deficit - Labs CBC & Chem 7: 06/19/19 06:05 06/18/19 05:56 Labs: Abnormal Lab Results - Last 24 Hours (Table) 06/19/19 06/20/19 Range/Units 16:40 05:43 APTT 55.0 H 58.6 H (22.0-30.0) sec Assessment and Plan Plan: 1 coronary artery disease with severe 2 vessel disease awaiting cardiac bypass surgery 2 wide complex tachycardia suggestive of V. tach 3 paroxysmal atrial fibrillation 4 right-sided proptosis which is currently inactive in stable 5 hyperlipidemia 6 CVA history of Plan From the pulmonary standpoint, the patient's sarcoidosis is quite sedated inactive for now. Chest x-ray is within normal limits. No signs of any extra pulmonary involvement with sarcoid. The patient is to be chest at [facility]. The patient is going to undergo bypass surgery. We'll sign off the case. We'll leave the rest of the management up to cardiology pending transfer to [facility].
--- NOTE | 2019-06-20 19:31 | PN ---
PROGRESS NOTE CHIEF COMPLAINT: Coronary artery disease. HISTORY OF PRESENT ILLNESS: This gentleman is comfortable and awaits transfer to [place]. PHYSICAL EXAM: Chest is clear. Cardiac exam is normal. Abdomen is soft, nontender. Extremities are normal. IMPRESSION: 1. Coronary artery disease. 2. Ventricular tachycardia. PLAN: No change in program. MMODL / IJN: [id number] /
[2019-06-20] MEDS: ATORVASTATIN 40 MG TAB PO SCH (20:53)
[2019-06-21] MEDS: ASPIRIN 81 MG PO SCH (08:23)
[2019-06-21] MEDS: METOPROLOL TARTRATE 25 MG TAB PO SCH ×2 (08:23→19:53)
--- NOTE | 2019-06-21 12:27 | CONS ---
CONSULTATION Brice is a 68-year-old gentleman who was admitted to the hospital with ventricular tachycardia and cardiac catheterization and was found to have severe 2 vessel coronary artery disease and is currently awaiting bypass surgery. He wanted to go to [facility] where we are waiting for to open up. This morning, he is doing well and is free of symptoms. He is on aspirin, Lipitor, heparin, Lopressor. The patient is on heparin because of episodes of paroxysmal atrial fibrillation and prior CVA. He was on Pradaxa coming in. PHYSICAL EXAM: He is comfortable at rest. Vital signs are stable. There is no jugular venous distention. Chest exam reveals good air entry bilaterally. Heart exam reveals first and second heart sounds. No gallop. Abdomen is soft. Exam of extremities did not reveal any edema. Peripheral pulses are felt. LABS: Show that the hemoglobin is 12.7, potassium is 4.2, creatinine is 0.68. ASSESSMENT: 1. Two-vessel coronary artery disease. 2. Wide-complex tachycardia. 3. Cerebrovascular accident with history of basilar artery stenosis. 4. Paroxysmal atrial fibrillation. PLAN: Patient is awaiting surgery and transferred to [facility]. MMODL / IJN: [id number] /
[2019-06-21] MEDS: SODIUM CHLORIDE 0.9% 1,000 ML IV SCH ×2 (16:59→17:58)
[2019-06-21] MEDS: HEPARIN SOD,PORK IN 0.45% NACL 25,000 UNIT in 0.45% NACL 1 250ML.BAG IV SCH (17:59)
[2019-06-21] MEDS: ATORVASTATIN 40 MG TAB PO SCH (19:53)
--- NOTE | 2019-06-21 21:14 | PN ---
PROGRESS NOTE CHIEF COMPLAINT: Coronary artery disease and ventricular tachycardia. HISTORY OF PRESENT ILLNESS: This gentleman is stable, comfortable and awaits transfer. There has been no interval change. PHYSICAL EXAM: Chest is clear. Cardiac exam is normal. Abdomen is soft, nontender. IMPRESSION: 1. Coronary artery disease. 2. Ventricular tachycardia. PLAN: No change in program and await bed in [place]. MMODL / IJN: [id number] /
[2019-06-22] MEDS: ASPIRIN 81 MG PO SCH (08:41)
[2019-06-22] MEDS: METOPROLOL TARTRATE 25 MG TAB PO SCH (08:41)
[2019-06-22] MEDS: SODIUM CHLORIDE 0.9% 1,000 ML IV SCH (08:42)
--- NOTE | 2019-06-22 10:11 | P.PN ---
Subjective Progress Note Date: 06/22/19 This is a 68-year-old gentleman who was admitted to the hospital with a wide complex tachycardia detected on his heart monitor, he was contacted by his appellate law clerk and advised to come to the emergency room. Patient lives in [facility], is relocating to [facility]. He does have history of lung sarcoidosis first diagnosed in 2009 and was treated with steroids for 2- 1/2 years with the most recent CT of the chest from January 2019 reportedly showing decrease in the hilar lymphadenopathy. Patient also has a history of paroxysmal atrial fibrillation, he had a stroke in December for which he was taking Pradaxa for anticoagulation. We are still awaiting records from [place], we did receive one copy of the rhythm strip performed which revealed a ventricular tachycardia. Patient underwent a stress echocardiographic study which was reported to be positive and for this reason underwent a cardiac catheterization by Dr. Sams which revealed severe two-vessel coronary artery disease with chronic occlusion of the left anterior descending artery, right to left collaterals, 95% stenosis involving the right coronary artery and severe disease involving the diagonal branch. A consultation with cardiothoracic surgery was requested, they did see the patient in consultation yesterday. The patient however wishes to be transferred to [facility], and we are awaiting a bed. This morning he was seen and examined, denied any chest pain or difficulty in breathing, no dizziness or lightheadedness. Let pressure 140/80 with a heart rate in the 70s, 94% on room air. 06/22/2019 Patient seen and examined this morning, denies any chest discomfort, awaiting a bed at [facility]. Objective - Vital Signs Vital signs: Vital Signs Temp 98 F 06/22/19 08:00 Pulse 73 06/22/19 08:00 Resp 16 06/22/19 08:00 BP 151/89 06/22/19 08:00 Pulse Ox 92 L 06/22/19 08:00 Intake & Output 06/21/19 06/22/19 06/22/19 18:59 06:59 18:59 Intake Total 1898.8 240 Output Total 400 400 Balance 1498.8 -160 Weight 84.1 kg Intake: IV 106.8 Heparin Sod,Pork in 0.45% 106.8 NaCl 25,000 unit In 0.45 % NaCl 1 250ml.bag @ 11. 917 UNITS/KG/HR 10 mls/hr IV .Q24H [facility] Rx#: [id number] Intake, IV Titration 850 Amount Heparin Sod,Pork in 0.45% 250 NaCl 25,000 unit In 0.45 % NaCl 1 250ml.bag @ 11. 917 UNITS/KG/HR 10 mls/hr IV .Q24H [facility] Rx#: [id number] Sodium Chloride 0.9% 1, 600 000 ml @ 75 mls/hr IV . [id number] [facility] Rx#:[id number] Oral 942 240 Output: Urine 400 400 Other: Voiding Method Toilet # Voids 1 - Exam HEAD: Normocephalic/atraumatic. EYES: Normal reaction of pupils, equal size. Conjunctiva pink, sclera white. NOSE: Clear with pink turbinates. THROAT: No erythema or exudates. NECK: No masses, no JVD, no thyroid enlargement, no adenopathy. CHEST: No chest wall deformity. Symmetrical expansion. LUNGS: diminished air entry with no crackles, wheeze, rhonchi or dullness. CVS: Regular rate and rhythm, normal S1 and S2, no gallops, no murmurs, no rubs ABDOMEN: Soft, nontender. No hepatosplenomegaly, normal bowel sounds, no guarding or rigidity. EXTREMITIES: No clubbing, no edema, no cyanosis, 2+ pulses and upper and lower extremities. MUSCULOSKELETAL: Muscle strength and tone normal. SPINE: No scoliosis or deformity SKIN: No rashes CENTRAL NERVOUS SYSTEM: Alert and oriented -3. No focal deficits, tone is normal in all 4 extremities. PSYCHIATRIC: Alert and oriented -3. Appropriate affect. Intact judgment and insight. - Labs CBC & Chem 7: 06/19/19 06:05 06/18/19 05:56 Labs: Abnormal Lab Results - Last 24 Hours (Table) 06/22/19 Range/Units 06:49 APTT 62.2 H (22.0-30.0) sec Assessment and Plan Plan: Assessment and plan #1 wide-complex tachycardia suggesting ventricular tachycardia #2 paroxysmal atrial fibrillation #3 pulmonary sarcoidosis #4 positive stress echocardiographic study with subsequent cardiac catheterization which revealed two-vessel coronary artery disease #5 hyperlipidemia Plan Patient is awaiting transfer to [facility] for coronary artery bypass grafting surgery. DNP note has been reviewed, I agree with a documented findings and plan of care. Patient was seen and examined.
[2019-06-22 11:35] VITALS: TEMP 98.1
--- NOTE | 2019-06-22 13:46 | PN ---
PROGRESS NOTE CHIEF COMPLAINT: Coronary artery disease. HISTORY OF PRESENT ILLNESS: This gentleman is comfortable and has had no new trouble while he is awaiting his bed in [place]. PHYSICAL EXAMINATION: Chest is clear. Cardiac exam is normal. IMPRESSION: 1. Coronary artery disease. 2. Ventricular tachycardia. PLAN: Await transfer. SULTANA / DORA: [id number] /
[2019-06-22 16:42] VITALS: BP 131/66; PULSE 68; RESP 18
== END 2019-06-22 19:25 | disposition short-term general hospital (02) | DRG 287 ==
LOC: EC 09:16 → 3SCARD 12:51
PROVIDERS: ADMIT Family Medicine; ATTEND Family Medicine
PROC: B2111ZZ Fluoroscopy of Multiple Coronary Arteries using Low Osmolar Contrast (ICD-10-PCS; 2019-06-19)
PROC: 4A023N7 Measurement of Cardiac Sampling and Pressure, Left Heart, Percutaneous Approach (ICD-10-PCS; principal; 2019-06-19 09:00)
DX: I25.10 Atherosclerotic heart disease of native coronary artery without angina pectoris (principal); I47.2 Ventricular tachycardia; I42.9 Cardiomyopathy, unspecified; I48.0 Paroxysmal atrial fibrillation; E78.5 Hyperlipidemia, unspecified; D86.0 Sarcoidosis of lung; Z86.73 Personal history of transient ischemic attack (TIA), and cerebral infarction without residual deficits; J84.10 Pulmonary fibrosis, unspecified; Z79.02 Long term (current) use of antithrombotics/antiplatelets; Z79.82 Long term (current) use of aspirin; Z79.899 Other long term (current) drug therapy; Z82.49 Family history of ischemic heart disease and other diseases of the circulatory system; Z82.5 Family history of asthma and other chronic lower respiratory diseases; R74.8 Abnormal levels of other serum enzymes
CPT/HCPCS: 36415; 71046; 80048; 80053; 80061; 83735; 84484; 85025; 85027; 85610; 85730; 93306; 93351; 93458; 94760; 96360; 96361; 96365; 96366; 96376; 99285

== ENCOUNTER → 2019-07-11 | Outpatient (CLI) | payer MEDICARE ==
[2019-07-11 15:58] LABS: African American GFR (CKD) 90.5 (60.0-200.0); Anion Gap 8.6 mmol/L (4.00-12.00); Calcium 9.1 mg/dL (8.7-10.3); Carbon Dioxide 28.4 mmol/L (21.6-31.8); Potassium 5.3 mmol/L (3.5-5.5)
== END | disposition home or self-care (01) ==
LOC: LABWHC1 08:07
DX: Z95.1 Presence of aortocoronary bypass graft (principal)
CPT/HCPCS: 36415; 80048

== ENCOUNTER → 2019-07-27 | Outpatient (CLI) | payer MEDICARE | END | disposition home or self-care (01) | LOC: LABWHC1 08:47 | PROVIDERS: ATTEND Nurse Practitioner | DX: Z48.812 Encounter for surgical aftercare following surgery on the circulatory system (principal); Z95.1 Presence of aortocoronary bypass graft | CPT/HCPCS: 36415; 83735 ==

== ENCOUNTER → 2020-07-24 | Outpatient (CLI) | payer MEDICARE ==
[2020-07-24 13:58] LABS: HCT 44.6 % (39.0-53.0); HGB 14.3 gm/dL (13.0-17.5); MCH 31.2 pg (25.0-35.0); MCHC 32.2 g/dL (31.0-37.0); MCV 97.1 fL (80.0-100.0); Mean Platelet Volume 7.7; Platelet Count 240 k/uL (150-450); RBC 4.59 m/uL (4.30-5.90); RDW 13.1 % (11.5-15.5); WBC 6.6 k/uL (3.8-10.6)
[2020-07-24 19:49] LABS: African American GFR (CKD) 102.1 (60.0-200.0); Anion Gap 5.3 mmol/L (4.00-12.00); BUN/Creat Ratio 12.22 Ratio (12.00-20.00); Calcium 9.4 mg/dL (8.7-10.3); Carbon Dioxide 27.7 mmol/L (21.6-31.8); Chol/HDL Ratio 3.07; LDL Cholesterol,Calculated 70.2 mg/dL (0.0-131.0); Non-African American GFR(CKD) 88.1 (60.0-200.0); VLDL Calculation 18.8 mg/dL (5.00-40.00)
== END | disposition home or self-care (01) ==
LOC: LABWHC1 11:26
PROVIDERS: ATTEND Internal Medicine Cardiovascular Disease
DX: I25.810 Atherosclerosis of coronary artery bypass graft(s) without angina pectoris (principal); I48.0 Paroxysmal atrial fibrillation; E78.2 Mixed hyperlipidemia
CPT/HCPCS: 36415; 80048; 80061; 84443; 85027

== ENCOUNTER → 2021-11-24 | Outpatient (CLI) | payer MEDICARE ==
[~2021-11-24] MED LIST: BAMLANIVIMAB (EUA) 700 MG, ETESEVIMAB (EUA) 1,400 MG in SODIUM CHLORIDE 0.9% 100 ML IVPB NR; SODIUM CHLORIDE 0.9% 50 ML IVPB ONE; SODIUM CHLORIDE 0.9% 500 ML 500 ML in EMPTY BAG 1 BAG IV PRN
[2021-11-24 08:53] VITALS: RESP 16; TEMP 97.8
[2021-11-24 10:06] VITALS: BP 112/70; PULSE 71
== END | disposition home or self-care (01) ==
LOC: PROCWHC3 07:56
PROVIDERS: ATTEND Physician Assistant
DX: U07.1 COVID-19 (principal)
CPT/HCPCS: 96360; J3490; M0245

== ENCOUNTER → 2022-06-15 | Outpatient (CLI) | payer OTHER ==
--- NOTE | 2022-06-15 15:36 | P.SLEEP ---
History of Present Illness DATE: 06/15/2022 CONSULTATION/NEW PATIENT EVALUATION HISTORY OF PRESENT ILLNESS/SLEEP-WAKE EVALUATION: 71year old gentleman had been evaluated in the sleep center for possible obstructive sleep apnea hypopnea syndrome. SLEEP SCHEDULE: Usually patient sleeps for 4 hours. FALLING ASLEEP Sometimes she has problems with the falling asleep, although no TV in bedroom] DURING SLEEP:He snores and wakes up from sleep 2 times with nocturia. ] No history of hypnogogical hallucinations, sleep paralysis, or cataplexy. DURING THE DAY/WAKE STATE During the day patient may feel occasional sleepiness]. [place] sleepiness scale i 6] He may take 1 nap at the different time]. PAST MEDICAL HISTORY Coronary artery disease, lateral fibrillation with status of cardiac ablation and cardioversion. Hypertension, hyperlipidemia. Acid reflux.] PAST SURGICAL HISTORY Coronary artery bypass graft] MEDICATIONS Atorvastatin 40 mg once a day, Eliquis 5 mg twice a day, lisinopril 20 mg once a day, metoprolol 100 mg 3 times a day, omeprazole.] SOCIAL HISTORY Negative ]for smoking, alcohol consumption occasional. FAMILY HISTORY:Heart problems] REVIEW OF SYSTEMS Snoring, awakenings from sleep with the nocturia. ]No fevers. No double vision. No recent chest pain. No shortness of breath. No abdominal pain. No bleeding episodes. No blood in urine. No seizure episodes. PHYSICAL EXAMINATION: GENERAL: A pleasant patient without any distress. VITAL SIGNS: B 168/92 , H 70 , R 16 , weigh 190 pounds, heigh 5 ]mariza 9 ]inches, body mass inde 28 . HEENT: PERRLA, EOMI. Evaluation of oropharynx showed tongue protrudes midline, low position of soft palate Mallampat 4]. NECK: Supple. No JVD. Thyroid is not palpable 16 inches in circumference. LUNGS: Clear to percussion and to auscultation. Good air exchange. No wheezing or rhonchi. HEART: S1, S2 regular. No murmurs, gallops or rubs. ABDOMEN: Soft and nontender. Bowel sounds are present. No organomegaly appreciated. EXTREMITIES: No clubbing or cyanosis. ROLL FORM OPERATOR: Awake, alert, and oriented x3. Cranial nerves 2 to 7 intact. There is no fasciculation or atrophy noted. No focal deficits observed. ASSESSMENT: 1 Snoring. Multiple awakenings from sleep with nocturia. Extremely low position of soft palate Mallampati 4. Episodes of sleepiness. Obstructive sleep apnea hypopnea syndrome]. 2 History of atrial fibrillation, status post [place] cardioversion and Cardioablation]. coronary artery disease status post CABG]. 4 Hypertension]. hyperlipidemia]. 6 Acid reflux]. PLAN: 1. Polysomnography for evaluation of patient's breathing during sleep. 2. CPAP/BiPAP titration if sleep study confirms obstructive sleep apnea- hypopnea syndrome. 3. Preferable position during sleep on the side. 4. No driving if patient feels any sleepiness. Patient is aware of civil and criminal liability for unsafe driving. 5. Sleep hygiene with regular sleep time for at least 7.5-8 hours. 6. Watching weight. Sincerely, Bola Perez MD, PhD, FAASM. Diplomat of [employer], Sleep Medicine Board by [employer] [facility] [place] Past Medical History Past Medical History: Atrial Fibrillation, Coronary Artery Disease (CAD), CVA/TIA Additional Past Medical History / Comment(s): SARCOIDOSIS OF LUNGS History of Any Multi-Drug Resistant Organisms: None Reported Past Surgical History: Back Surgery, Heart Catheterization Additional Past Surgical History / Comment(s): had osteomylitis in back which required surgery, then had to have a surgery for a herniated disc. Also lasik surgery Past Anesthesia/Blood Transfusion Reactions: No Reported Reaction Past Psychological History: No Psychological Hx Reported Past Alcohol Use History: None Reported Past Drug Use History: None Reported - Past Family History Mother Family Medical History: Coronary Artery Disease (CAD) Additional Family Medical History / Comment(s): CABG Father Family Medical History: COPD Additional Family Medical History / Comment(s): heavy smoker Sister(s) Family Medical History: CVA/TIA Brother(s) Additional Family Medical History / Comment(s): Carotid disease Medications and Allergies Home Medications Medication Instructions Recorded Confirmed Type Atorvastatin [Lipitor] 40 mg PO HS 06/17/19 11/24/21 History Metoprolol Tartrate [Lopressor] 25 mg PO BID 06/17/19 11/24/21 History Apixaban [Eliquis] 5 mg PO BID 11/24/21 11/24/21 History Aspirin 81 mg PO DAILY 11/24/21 11/24/21 History Omeprazole 20 mg PO DAILY 11/24/21 11/24/21 History lisinopriL [Prinivil] 10 mg PO DAILY 11/24/21 11/24/21 History Allergies Allergy/AdvReac Type Severity Reaction Status Date / Time Penicillins Allergy Unknown Verified 11/24/21 08:44 Sleep Note - Sleep Note Sleep Note: Temperature: Pulse Rate: Respiratory Rate: Blood Pressure: SpO2: Height: Weight: BMI: Neck Circumference:
== END ==
LOC: SLEEP 14:42
PROVIDERS: ATTEND Internal Medicine
DX: G47.33 Obstructive sleep apnea (adult) (pediatric) (principal); I48.91 Unspecified atrial fibrillation; Z95.1 Presence of aortocoronary bypass graft; I10 Essential (primary) hypertension; E78.5 Hyperlipidemia, unspecified; K21.9 Gastro-esophageal reflux disease without esophagitis; I25.10 Atherosclerotic heart disease of native coronary artery without angina pectoris; Z79.01 Long term (current) use of anticoagulants; Z79.899 Other long term (current) drug therapy; Z88.0 Allergy status to penicillin
CPT/HCPCS: 99211

== ENCOUNTER → 2023-05-10 | Outpatient (CLI) | payer OTHER ==
--- NOTE | 2023-05-10 16:21 | P.PN ---
Subjective DATE: 05/10/2023 FOLLOW UP VISIT. Patient returned to sleep center for follow-up visit. Patient had sleep study in July 2022, which showed obstructive sleep apnea hypopnea syndrome in mild range and extremely severe periodic limb movements. Patient was recommended to start CPAP treatment, but for different reason treatment was not started yet. Patient continued to have atrial fibrillation and some sleep problems . [place] sleepiness scale is 2. MEDICATIONS:1. Atorvastatin 40 mg once a day 2. Eliquis 5 mg twice a day 3. Lisinopril 20 mg once a day 4. Metoprolol 100 mg 3 times a day 5. Omeprazole 20 mg once a day 6. Spiriva inhaler During physical exam: GENERAL: A pleasant patient without any distress. VITAL SIGNS: BP 137/86, HR 81, RR 18 , weight 189.0, temperature 98.2, oxygen saturation at room air 95 . HEENT: PERRLA, EOMI. NECK: Supple. No JVD. LUNGS: Clear to percussion and to auscultation. Good air exchange. No wheezing or rhonchi. HEART: S1, S2 . Irregularly irregular. ABDOMEN: Soft and nontender. EXTREMITIES: No clubbing or cyanosis. NETWORK ENGINEERING ADVISOR: Awake, alert, and oriented x3. No focal deficit. Impressions: 1. Obstructive sleep apnea hypopnea syndrome 2. Atrial fibrillation. 3. Coronary artery disease, status post CABG. 4. History of stroke. 5. Acid reflux. 6. Hyperlipidemia. Plan: 1. Patient will start treatment with AutoPAP and should use equipment every night for the whole nigh. 2. Sleep hygiene with regular time in bed for at least 8 hours. 3. Watching weight 4. Precautions related to driving. No driving if feel any sleepiness. Patient is aware about civil and criminal liability for unsafe driving, promised to follow recommendations. 5. Follow up visit in 1-2 months after patient will start treatment with CPAP to evaluate clinical response on treatment, compliance with treatment and make any necessary adjustments. Thank you very much for allowing me to participate in the management of your patient. Bola Perez MD, PhD, FAASM. Diplomat of [employer] [employer], Sleep Medicine Board by [employer] [facility] [place]
== END ==
LOC: SLEEP 15:04
PROVIDERS: ATTEND Internal Medicine
DX: G47.33 Obstructive sleep apnea (adult) (pediatric) (principal); E78.5 Hyperlipidemia, unspecified; I25.10 Atherosclerotic heart disease of native coronary artery without angina pectoris; I48.91 Unspecified atrial fibrillation; K21.9 Gastro-esophageal reflux disease without esophagitis; Z79.01 Long term (current) use of anticoagulants; Z79.899 Other long term (current) drug therapy; Z86.73 Personal history of transient ischemic attack (TIA), and cerebral infarction without residual deficits; Z95.1 Presence of aortocoronary bypass graft; Z99.89 Dependence on other enabling machines and devices; Z88.0 Allergy status to penicillin
CPT/HCPCS: 99212

== ENCOUNTER 2023-05-29 10:15 | Emergency (ER) | payer OTHER ==
[2023-05-29 10:22] VITALS: TEMP 98.2
[2023-05-29 12:18] LABS: Basophils % (A) 0 %; Eosinophils # (A) 0.1 k/uL (0-0.7); Eosinophils % (A) 1 %; HGB 12.7 gm/dL (13.0-17.5); Lymphocytes # (A) 0.9 k/uL (1.0-4.8); Lymphocytes % (A) 11 %; MCH 31.6 pg (25.0-35.0); MCHC 33.4 g/dL (31.0-37.0); MCV 94.7 fL (80.0-100.0); Monocytes # (A) 0.5 k/uL (0-1.0); Monocytes % (A) 7 %; Neutrophils % (A) 80 %; Platelet Count 184 k/uL (150-450); RBC 4.01 m/uL (4.30-5.90); RDW 12.8 % (11.5-15.5); WBC 7.5 k/uL (3.8-10.6)
[2023-05-29 12:28] LABS: INR 1.1 (<1.2)
[2023-05-29 12:29] LABS: Prothrombin Time 11.4 sec (9.0-12.0)
[2023-05-29 12:30] LABS: ALT 28 U/L (4-49); AST 27 U/L (17-59); African American GFR (CKD) >90 (>60 ml/min/1.73 sqM); Albumin 3.8 g/dL (3.5-5.0); Alkaline Phosphatase 140 U/L (38-126); Anion Gap 8 mmol/L; Blood Urea Nitrogen 17 mg/dL (9-20); Calcium 9.1 mg/dL (8.4-10.2); Carbon Dioxide 24 mmol/L (22-30); Chloride 108 mmol/L (98-107); Glucose 103 mg/dL (74-99); Non-African American GFR(CKD) >90 (>60 ml/min/1.73 sqM); Potassium 4.3 mmol/L (3.5-5.1); Sodium 140 mmol/L (137-145); Total Bilirubin 1.7 mg/dL (0.2-1.3); Total Protein 6.9 g/dL (6.3-8.2)
[2023-05-29 12:34] VITALS: RESP 18
--- NOTE | 2023-05-29 13:06 | ED ---
General Adult HPI - General Chief complaint: Shortness of Breath Stated complaint: BARBY Time Seen by Provider: 05/29/23 10:54 Source: patient Mode of arrival: ambulatory Limitations: no limitations - History of Present Illness Initial comments: 72-year-old male with past medical history of A. fib, coronary artery disease, valvular disease with replacement, sarcoid who presents to the emergency department for shortness of breath. States that he has had exertional shortness of breath for a while. He has wore a Holter monitor, had a stress test. Bronson kwan with Dr. Sams. Recently had an echo on the . He reports that he has had an ablation approximately one years ago in an attempt to help his shortness of breath however persists and over the past 2 days the patient has had even worsening breathing. He has an inhaler that he uses for sarcoid. Denies being on any steroids. No fevers, chills or cough. No chest pain. Other alleviating, precipitating or modifying factors - Related Data Home Medications Medication Instructions Recorded Confirmed Atorvastatin [Lipitor] 40 mg PO DAILY 06/17/19 05/29/23 Apixaban [Eliquis] 5 mg PO BID 11/24/21 05/29/23 Omeprazole 20 mg PO DAILY 11/24/21 05/29/23 Cholecalciferol [Vitamin D3 (25 50 mcg PO DAILY 05/29/23 05/29/23 Mcg = 1000 Iu)] Dm/Acetaminophen/Doxylamine [Vicks 10 ml PO Q6H PRN 05/29/23 05/29/23 Nyquil Cold-Flu Liquid] Loratadine/Pseudoephedrine 1 tab PO DAILY PRN 05/29/23 05/29/23 [Loratadine-D 12 Hour Tablet] Metoprolol Succinate (ER) [Toprol 100 mg PO DAILY 05/29/23 05/29/23 Xl] Metoprolol Succinate (ER) [Toprol 200 mg PO HS 05/29/23 05/29/23 Xl] Tiotropium 2.5 Mcg/Puff [Spiriva 2 puff INHALATION RT-DAILY 05/29/23 05/29/23 Respimat 2.5 Mcg] Vitamin C(Unknown Dose) 1 tab PO DAILY 05/29/23 05/29/23 lisinopriL [Prinivil] 20 mg PO DAILY 05/29/23 05/29/23 Previous Rx's Medication Instructions Recorded Levofloxacin [Levaquin] 750 mg PO DAILY 1 Days #5 tab 05/29/23 predniSONE [Deltasone] 20 mg PO BID #10 tab 05/29/23 Allergies Allergy/AdvReac Type Severity Reaction Status Date / Time Penicillins Allergy Unknown Verified 05/29/23 12:13 Review of Systems ROS Statement: Those systems with pertinent positive or pertinent negative responses have been documented in the HPI. ROS Other: All systems not noted in ROS Statement are negative. 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 Also lasik surgery, Past Anesthesia/Blood Transfusion Reactions: No Reported Reaction Past Psychological History: No Psychological Hx Reported Smoking Status: Never smoker Past Alcohol Use History: None Reported Past Drug Use History: None Reported - Past Family History Mother Family Medical History: Coronary Artery Disease (CAD) Additional Family Medical History / Comment(s): CABG Father Family Medical History: COPD Additional Family Medical History / Comment(s): heavy smoker Sister(s) Family Medical History: CVA/TIA Brother(s) Additional Family Medical History / Comment(s): Carotid disease General Exam Limitations: no limitations General appearance: alert, in no apparent distress Head exam: Present: atraumatic, normocephalic, normal inspection Eye exam: Present: normal appearance, PERRL, EOMI. Absent: scleral icterus, conjunctival injection, periorbital swelling ENT exam: Present: normal exam, mucous membranes moist Neck exam: Present: normal inspection. Absent: tenderness, meningismus, l ymphadenopathy Respiratory exam: Present: normal lung sounds bilaterally. Absent: respiratory distress, wheezes, rales, rhonchi, stridor Cardiovascular Exam: Present: regular rate, normal rhythm, normal heart sounds. Absent: systolic murmur, diastolic murmur, rubs, gallop, clicks GI/Abdominal exam: Present: soft, normal bowel sounds. Absent: distended, tenderness, guarding, rebound, rigid Extremities exam: Present: normal inspection, full ROM, normal capillary refill. Absent: tenderness, pedal edema, joint swelling, calf tenderness Back exam: Present: normal inspection Neurological exam: Present: alert, oriented X3, CN II-XII intact Psychiatric exam: Present: normal affect, normal mood Skin exam: Present: warm, dry, intact, normal color. Absent: rash Course Vital Signs 05/29/23 05/29/23 05/29/23 10:17 12:00 12:33 Temperature 98.2 F Pulse Rate 93 81 81 Respiratory 20 16 18 Rate Blood Pressure 193/105 157/97 150/108 O2 Sat by Pulse 95 93 L 99 Oximetry 05/29/23 14:12 Temperature Pulse Rate 83 Respiratory 18 Rate Blood Pressure 160/97 O2 Sat by Pulse 95 Oximetry Medical Decision Making - Medical Decision Making Was pt. sent in by a medical professional or institution (, PA, MEDICAL CARE ADMINISTRATOR, urgent care, hospital, or usp...) When possible be specific @ -No Did you speak to anyone other than the patient for history (EMS, parent, family, police, friend...)? What history was obtained from this source @ -No Did you review nursing and triage notes (agree or disagree)? Why? @ -I reviewed and agree with nursing and triage notes Were old charts reviewed (outside hosp., previous admission, EMS record, old EKG, old radiological studies, urgent care reports/EKG's, usp records)? Report findings @ -old charts were reviewed Differential Diagnosis (chest pain, altered mental status, abdominal pain women, abdominal pain men, vaginal bleeding, weakness, fever, dyspnea, syncope, headache, dizziness, GI bleed, back pain, seizure, CVA, palpatations, mental health, musculoskeletal)? @ -acs, stemi, nstemi, coronary vasospasm, pe EKG interpreted by me (3pts min.). @ -Yes and demonstrates A. fib with a rate of 85. QRS 144. QTC of 431. No acute ST segment elevations. Right bundle-branch block X-rays interpreted by me (1pt min.). @ -yes, no acute process CT interpreted by me (1pt min.). @ -None done U/S interpreted by me (1pt. min.). @ -None done What testing was considered but not performed or refused? (CT, X-rays, U/S, labs)? Why? @ -None What meds were considered but not given or refused? Why? @ -None Did you discuss the management of the patient with other professionals (professionals i.e. , PA, MEDICAL CARE ADMINISTRATOR, lab, RT, psych nurse, clinical social work therapist, plant propagator, teacher, property disposal officer, casework specialist)? Give summary @ -No Was smoking cessation discussed for >3mins.? @ -No Was critical care preformed (if so, how long)? @ -No Were there social determinants of health that impacted care today? How? (Homelessness, low income, unemployed, alcoholism, drug addiction, transportation, low edu. Level, literacy, decrease access to med. care, fci, rehab)? @ -No Was there de-escalation of care discussed even if they declined (Discuss DNR or withdrawal of care, Hospice)? DNR status @ -No What co-morbidities impacted this encounter? (DM, HTN, Smoking, COPD, CAD, Cancer, CVA, ARF, Chemo, Hep., AIDS, mental health diagnosis, sleep apnea, morbid obesity)? @ -sarcoid, cad Was patient admitted / discharged? Hospital course, mention meds given and route, prescriptions, significant lab abnormalities, going to OR and other pertinent info. @ -Upon arrival patient was placed into room 1. Thorough history and physical exam was performed. He has no signs of respiratory distress. IV is established laboratories is her conducted. 12-lead EKG is performed. Chest x-ray demonstrates questionable infiltrate right lower lobe. Patient does have a history of sarcoid. He has no clinical symptoms of pneumonia. At this time the patient is given 125 of Solu-Medrol. He'll be discharged home on prednisone. He is instructed to take the medications for 72 hours. If he does not have any improvement in his symptoms he may start taking the antibiotic. He needs to follow up with pulmonology and return for any new or worsening symptoms. Patient agreeable to the plan is discharge home in stable condition Undiagnosed new problem with uncertain prognosis? @ -No Drug Therapy requiring intensive monitoring for toxicity (Heparin, Nitro, Insulin, Cardizem)? @ -No Were any procedures done? @ -No Diagnosis/symptom? @ -acute exacerbation of chronic resp insuff, sarcoidosis Acute, or Chronic, or Acute on Chronic? @ -acute on chronic Uncomplicated (without systemic symptoms) or Complicated (systemic symptoms)? @ -complicated Side effects of treatment? @ -No Exacerbation, Progression, or Severe Exacerbation? @ -yes Poses a threat to life or bodily function? How? (Chest pain, [place], [place], pneumonia, PE, COPD, DKA, ARF, appy, cholecystitis, CVA, Diverticulitis, Homicidal, Suicidal, threat to staff... and all critical care pts) @ -No - Lab Data Result diagrams: 05/29/23 11:58 05/29/23 11:58 Lab Results 05/29/23 05/29/23 05/29/23 Range/Units 11:58 11:58 11:58 WBC 7.5 (3.8-10.6) k/uL RBC 4.01 L (4.30-5.90) m/uL Hgb 12.7 L (13.0-17.5) gm/dL Hct 38.0 L (39.0-53.0) % MCV 94.7 (80.0-100.0) fL MCH 31.6 (25.0-35.0) pg MCHC 33.4 (31.0-37.0) g/dL RDW 12.8 (11.5-15.5) % Plt Count 184 (150-450) k/uL MPV 8.0 Neutrophils % 80 % Lymphocytes % 11 % Monocytes % 7 % Eosinophils % 1 % Basophils % 0 % Neutrophils # 6.0 (1.3-7.7) k/uL Lymphocytes # 0.9 L (1.0-4.8) k/uL Monocytes # 0.5 (0-1.0) k/uL Eosinophils # 0.1 (0-0.7) k/uL Basophils # 0.0 (0-0.2) k/uL PT 11.4 (9.0-12.0) sec INR 1.1 (<1.2) APTT 24.0 (22.0-30.0) sec Sodium 140 (137-145) mmol/L Potassium 4.3 (3.5-5.1) mmol/L Chloride 108 H (98-107) mmol/L Carbon Dioxide 24 (22-30) mmol/L Anion Gap 8 mmol/L BUN 17 (9-20) mg/dL Creatinine 0.68 (0.66-1.25) mg/dL Est GFR (CKD-EPI)AfAm >90 (>60 ml/min/1.73 sqM) Est GFR (CKD-EPI)NonAf >90 (>60 ml/min/1.73 sqM) Glucose 103 H (74-99) mg/dL Plasma Lactic Acid Anshu (0.7-2.0) mmol/L Calcium 9.1 (8.4-10.2) mg/dL Total Bilirubin 1.7 H (0.2-1.3) mg/dL AST 27 (17-59) U/L ALT 28 (4-49) U/L Alkaline Phosphatase 140 H (38-126) U/L Troponin I (0.000-0.034) ng/mL NT-Pro-B Natriuret Pep pg/mL Total Protein 6.9 (6.3-8.2) g/dL Albumin 3.8 (3.5-5.0) g/dL 05/29/23 05/29/23 05/29/23 Range/Units 11:58 11:58 11:58 WBC (3.8-10.6) k/uL RBC (4.30-5.90) m/uL Hgb (13.0-17.5) gm/dL Hct (39.0-53.0) % MCV (80.0-100.0) fL MCH (25.0-35.0) pg MCHC (31.0-37.0) g/dL RDW (11.5-15.5) % Plt Count (150-450) k/uL MPV Neutrophils % % Lymphocytes % % Monocytes % % Eosinophils % % Basophils % % Neutrophils # (1.3-7.7) k/uL Lymphocytes # (1.0-4.8) k/uL Monocytes # (0-1.0) k/uL Eosinophils # (0-0.7) k/uL Basophils # (0-0.2) k/uL PT (9.0-12.0) sec INR (<1.2) APTT (22.0-30.0) sec Sodium (137-145) mmol/L Potassium (3.5-5.1) mmol/L Chloride (98-107) mmol/L Carbon Dioxide (22-30) mmol/L Anion Gap mmol/L BUN (9-20) mg/dL Creatinine (0.66-1.25) mg/dL Est GFR (CKD-EPI)AfAm (>60 ml/min/1.73 sqM) Est GFR (CKD-EPI)NonAf (>60 ml/min/1.73 sqM) Glucose (74-99) mg/dL Plasma Lactic Acid Anshu 1.7 (0.7-2.0) mmol/L Calcium (8.4-10.2) mg/dL Total Bilirubin (0.2-1.3) mg/dL AST (17-59) U/L ALT (4-49) U/L Alkaline Phosphatase (38-126) U/L Troponin I <0.012 (0.000-0.034) ng/mL NT-Pro-B Natriuret Pep 3450 pg/mL Total Protein (6.3-8.2) g/dL Albumin (3.5-5.0) g/dL Disposition Clinical Impression: Shortness of breath, Sarcoidosis, Lung consolidation Disposition: HOME SELF-CARE Condition: Stable Instructions (If sedation given, give patient instructions): Shortness of Breath (ED) Additional Instructions: Start taking the steroids tomorrow. Use your inhaler every 4 hours. Start taking the antibiotics in 72 hours if your symptoms persist or you develop cough and fevers. Return for any new or worsening symptoms Prescriptions: predniSONE [Deltasone] 20 mg PO BID #10 tab Levofloxacin [Levaquin] 750 mg PO DAILY 1 Days #5 tab Is patient prescribed a controlled substance at d/c from ED?: No Referrals: Nonstaff,Physician [REFERRING] - 1-2 days Time of Disposition: 14:09
--- NOTE | 2023-05-29 13:28 | XR ---
EXAMINATION TYPE: XR chest 2V DATE OF EXAM: 05/29/2023 COMPARISON: 06/17/2019 INDICATION: Difficulty breathing history of sarcoid TECHNIQUE: Frontal and lateral views of the chest are obtained. FINDINGS: The heart size is normal. The pulmonary vasculature is normal. There is mild increased infiltrate in the infrahilar region on the right. Correlate for atelectasis o r pneumonia. Sternotomy wires are in the midline.. IMPRESSION: 1. Right infrahilar infiltrate. Correlate for atelectasis or pneumonia. Follow-up is recommended
[2023-05-29] MEDS ORDERED: methylPREDNISolone SOD SUCCI 125 MG/2 ML VIAL IV STA (13:55)
[2023-05-29 14:13] VITALS: BP 160/97; PULSE 83
== END 2023-05-29 14:24 | disposition home or self-care (01) ==
LOC: EC 10:15
DX: D86.9 Sarcoidosis, unspecified (principal); J18.1 Lobar pneumonia, unspecified organism; I48.91 Unspecified atrial fibrillation; I25.10 Atherosclerotic heart disease of native coronary artery without angina pectoris; Z86.73 Personal history of transient ischemic attack (TIA), and cerebral infarction without residual deficits; Z79.01 Long term (current) use of anticoagulants; Z79.899 Other long term (current) drug therapy; Z88.0 Allergy status to penicillin
CPT/HCPCS: 36415; 93005; 83880; 80053; 83605; 84484; 85025; 85610; 85730; 71046; 99285; 96374; J2930

== ENCOUNTER 2024-03-10 13:25 | Emergency (ER) | payer OTHER ==
--- NOTE | 2024-03-10 13:46 | ED ---
General Adult HPI - General Stated complaint: Dizziness Time Seen by Provider: 03/10/24 13:40 Source: patient, RN notes reviewed - History of Present Illness Initial comments: This is a 73-year-old male history of A-fib, CVA, CABG, and munira replacement who presents emergency department chief complaint of fatigue. Patient states that he was walking outside when he started to 'feel off' in addition to palpitations and dizziness. He states that this episode lasted for around 30 seconds where he went to his inside of his car and the feeling of dizziness subsided. Denies loss of consciousness at this event or falling. Only, patient denies dizziness, lightheadedness, is in vision, weakness. Denies drug and alcohol use. - Related Data Home Medications Medication Instructions Recorded Confirmed Atorvastatin [Lipitor] 40 mg PO DAILY 06/17/19 05/29/23 Apixaban [Eliquis] 5 mg PO BID 11/24/21 05/29/23 Omeprazole 20 mg PO DAILY 11/24/21 05/29/23 Cholecalciferol [Vitamin D3 (25 50 mcg PO DAILY 05/29/23 05/29/23 Mcg = 1000 Iu)] Dm/Acetaminophen/Doxylamine [Vicks 10 ml PO Q6H PRN 05/29/23 05/29/23 Nyquil Cold-Flu Liquid] Loratadine/Pseudoephedrine 1 tab PO DAILY PRN 05/29/23 05/29/23 [Loratadine-D 12 Hour Tablet] Metoprolol Succinate (ER) [Toprol 100 mg PO DAILY 05/29/23 05/29/23 Xl] Metoprolol Succinate (ER) [Toprol 200 mg PO HS 05/29/23 05/29/23 Xl] Tiotropium 2.5 Mcg/Puff [Spiriva 2 puff INHALATION RT-DAILY 05/29/23 05/29/23 Respimat 2.5 Mcg] Vitamin C(Unknown Dose) 1 tab PO DAILY 05/29/23 05/29/23 lisinopriL [Prinivil] 20 mg PO DAILY 05/29/23 05/29/23 Previous Rx's Medication Instructions Recorded Levofloxacin [Levaquin] 750 mg PO DAILY 1 Days #5 tab 05/29/23 predniSONE [Deltasone] 20 mg PO BID #10 tab 05/29/23 Nystatin [Nystatin Oral Susp] 400,000 unit PO QID #64 ml 03/10/24 Allergies Allergy/AdvReac Type Severity Reaction Status Date / Time Penicillins Allergy Unknown Verified 03/10/24 13:46 Review of Systems ROS Statement: Those systems with pertinent positive or pertinent negative responses have been documented in the HPI. ROS Other: All systems not noted in ROS Statement are negative. 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 Also lasik surgery, Past Anesthesia/Blood Transfusion Reactions: No Reported Reaction Past Psychological History: No Psychological Hx Reported Smoking Status: Never smoker Past Alcohol Use History: None Reported Past Drug Use History: None Reported - Past Family History Mother Family Medical History: Coronary Artery Disease (CAD) Additional Family Medical History / Comment(s): CABG Father Family Medical History: COPD Additional Family Medical History / Comment(s): heavy smoker Sister(s) Family Medical History: CVA/TIA Brother(s) Additional Family Medical History / Comment(s): Carotid disease General Exam - General Exam Comments Initial Comments: Visual Physical Exam Vital signs reviewed General: Well-appearing, nontoxic, no acute distress. Head: Normocephalic, atraumatic Eyes: PERRLA, EOMI ENT: Airway patent Chest: Nonlabored breathing Skin: No visual rash, normal skin tone Neuro: Alert and oriented 3 Musculoskeletal: No gross abnormalities General appearance: alert, in no apparent distress Head exam: Present: atraumatic, normocephalic, normal inspection Eye exam: Present: normal appearance, PERRL, EOMI. Absent: scleral icterus, conjunctival injection, periorbital swelling ENT exam: Present: normal exam, mucous membranes moist Expanded Throat exam: other (exudative material on the superior oropharynx that is able to be scrapped off with tongue depressor) Neck exam: Present: normal inspection. Absent: tenderness, meningismus, lymphadenopathy Respiratory exam: Present: normal lung sounds bilaterally. Absent: respiratory distress, wheezes, rales, rhonchi, stridor Cardiovascular Exam: Present: regular rate, normal rhythm, normal heart sounds. Absent: systolic murmur, diastolic murmur, rubs, gallop, clicks GI/Abdominal exam: Present: soft, normal bowel sounds. Absent: distended, tenderness, guarding, rebound, rigid Extremities exam: Present: normal inspection, full ROM, normal capillary refill. Absent: tenderness, pedal edema, joint swelling, calf tenderness Back exam: Present: normal inspection Neurological exam: Present: alert, oriented X3, CN II-XII intact Psychiatric exam: Present: normal affect, normal mood Skin exam: Present: warm, dry, intact, normal color. Absent: rash Course Vital Signs 03/10/24 03/10/24 13:43 16:50 Temperature 97.7 F 98.5 F Pulse Rate 72 84 Respiratory 18 18 Rate Blood Pressure 168/86 150/91 O2 Sat by Pulse 95 95 Oximetry Medical Decision Making - Medical Decision Making Was pt. sent in by a medical professional or institution ([facility], [employer], urgent care, hospital, or detention...) When possible be specific @ -No Did you speak to anyone other than the patient for history (EMS, parent, family, police, friend...)? What history was obtained from this source @ -No Did you review nursing and triage notes (agree or disagree)? Why? @ -I reviewed and agree with nursing and triage notes Were old charts reviewed (outside hosp., previous admission, EMS record, old EKG, old radiological studies, urgent care reports/EKG's, detention records)? Report findings @ -No old charts were reviewed Differential Diagnosis (chest pain, altered mental status, abdominal pain women, abdominal pain men, vaginal bleeding, weakness, fever, dyspnea, syncope, headache, dizziness, GI bleed, back pain, seizure, CVA, palpatations, mental health, musculoskeletal)? @ -Differential Dizziness: Benign paroxysmal positional Vertigo, Menieres disease, otitis media, acoustic neuroma, vertebrobasilar insufficiency, cerebellar stroke, encephalitis, hypovolemic, arrhythmia, coronary artery syndrome, anemia, this is not meant to be an all-inclusive list EKG interpreted by me (3pts min.). @ -As above X-rays interpreted by me (1pt min.). @ -Chest x-ray reveals no acute cardiopulmonary process. CT interpreted by me (1pt min.). @ -Brain CT reveals no acute intracranial process, remote right basal ganglia and left cerebellar infarcts. U/S interpreted by me (1pt. min.). @ -None done What testing was considered but not performed or refused? (CT, X-rays, U/S, labs)? Why? @ -None What meds were considered but not given or refused? Why? @ -None Did you discuss the management of the patient with other professionals (professionals i.e. DrPari, PA, [employer], lab, RT, psych nurse, social media intern, still operator whiskey, teacher, youth liaison officer, foster care case manager)? Give summary @ -No Was smoking cessation discussed for >3mins.? @ -No Was critical care preformed (if so, how long)? @ -No Were there social determinants of health that impacted care today? How? (Homelessness, low income, unemployed, alcoholism, drug addiction, transportation, low edu. Level, literacy, decrease access to med. care, correction, rehab)? @ -No Was there de-escalation of care discussed even if they declined (Discuss DNR or withdrawal of care, Hospice)? DNR status @ -No What co-morbidities impacted this encounter? (DM, HTN, Smoking, COPD, CAD, Cancer, CVA, ARF, Chemo, Hep., AIDS, mental health diagnosis, sleep apnea, morbid obesity)? @ -HTN, CAD Was patient admitted / discharged? Hospital course, mention meds given and route, prescriptions, significant lab abnormalities, going to OR and other pertinent info. @ 73-year-old male with complaint of episode of dizziness and fatigue. Complete neurovascular and neurological exam completed of the patient with no acute findings. There are no evidence of cerebellar ataxia, aphasia, unilateral weakness, paresthesias. Additionally, cardiovascular and pulmonary examinations are benign. Examination of the patient's oropharynx revealed a exudative caseous type material on the patient's superior oropharynx that is scraped with a tongue depressor and removed, consistent with thrush. Laboratory results of CBC, CMP unremarkable. Patient's troponin nonelevated, BNP 1440. CTA obtained of the patient's head due to history of of CVA in addition to episode of dizziness that revealed no acute intracranial process. Reevaluation of the patient at bedside states that he feels much better from this morning and states that the episode only lasted for a brief moment. Due to patient stable vitals and benign examination he is stable for discharge at this time. Recommend that he follows up with his primary care provider within the next 2 days for further evaluation. Discussed strict return parameters with the patient. Patient prescribed oral nystatin wash for diagnosis of thrush. Discussed with Dr. Curry Undiagnosed new problem with uncertain prognosis? @ -No Drug Therapy requiring intensive monitoring for toxicity (Heparin, Nitro, Insulin, Cardizem)? @ -No Were any procedures done? @ -No Diagnosis/symptom? @ -dizziness, fatigue Acute, or Chronic, or Acute on Chronic? @ -acute Uncomplicated (without systemic symptoms) or Complicated (systemic symptoms)? @ -uncomplicated Side effects of treatment? @ -No Exacerbation, Progression, or Severe Exacerbation? @ -No Poses a threat to life or bodily function? How? (Chest pain, [place], [place], pneumonia, PE, COPD, DKA, ARF, appy, cholecystitis, CVA, Diverticulitis, Homicidal, Suicidal, threat to staff... and all critical care pts) @ -No - Lab Data Result diagrams: 03/10/24 14:01 03/10/24 14:01 Lab Results 03/10/24 03/10/24 03/10/24 Range/Units 14:01 14:01 14:01 WBC 7.5 (3.8-10.6) k/uL RBC 4.12 L (4.30-5.90) m/uL Hgb 13.3 (13.0-17.5) gm/dL Hct 40.1 (39.0-53.0) % MCV 97.3 (80.0-100.0) fL MCH 32.2 (25.0-35.0) pg MCHC 33.1 (31.0-37.0) g/dL RDW 13.9 (11.5-15.5) % Plt Count 187 (150-450) k/uL MPV 8.4 Neutrophils % 73 % Lymphocytes % 16 % Monocytes % 8 % Eosinophils % 1 % Basophils % 1 % Neutrophils # 5.5 (1.3-7.7) k/uL Lymphocytes # 1.2 (1.0-4.8) k/uL Monocytes # 0.6 (0-1.0) k/uL Eosinophils # 0.1 (0-0.7) k/uL Basophils # 0.0 (0-0.2) k/uL PT (10.0-12.5) sec INR (<1.2) APTT (22.0-30.0) sec Sodium 139 (137-145) mmol/L Potassium 4.2 (3.5-5.1) mmol/L Chloride 106 (98-107) mmol/L Carbon Dioxide 22 (22-30) mmol/L Anion Gap 11 mmol/L BUN 21 H (9-20) mg/dL Creatinine 0.81 (0.66-1.25) mg/dL Est GFR (CKD-EPI)AfAm >90 (>60 ml/min/1.73 sqM) Est GFR (CKD-EPI)NonAf 89 (>60 ml/min/1.73 sqM) Glucose 122 H (74-99) mg/dL Calcium 9.8 (8.4-10.2) mg/dL Magnesium 1.6 (1.6-2.3) mg/dL Total Bilirubin 1.7 H (0.2-1.3) mg/dL AST 37 (17-59) U/L ALT 27 (4-49) U/L Alkaline Phosphatase 124 (38-126) U/L Troponin I <0.012 (0.000-0.034) ng/mL NT-Pro-B Natriuret Pep 1440 pg/mL Total Protein 7.4 (6.3-8.2) g/dL Albumin 4.2 (3.5-5.0) g/dL 03/10/24 Range/Units 14:01 WBC (3.8-10.6) k/uL RBC (4.30-5.90) m/uL Hgb (13.0-17.5) gm/dL Hct (39.0-53.0) % MCV (80.0-100.0) fL MCH (25.0-35.0) pg MCHC (31.0-37.0) g/dL RDW (11.5-15.5) % Plt Count (150-450) k/uL MPV Neutrophils % % Lymphocytes % % Monocytes % % Eosinophils % % Basophils % % Neutrophils # (1.3-7.7) k/uL Lymphocytes # (1.0-4.8) k/uL Monocytes # (0-1.0) k/uL Eosinophils # (0-0.7) k/uL Basophils # (0-0.2) k/uL PT 11.8 (10.0-12.5) sec INR 1.1 (<1.2) APTT 24.7 (22.0-30.0) sec Sodium (137-145) mmol/L Potassium (3.5-5.1) mmol/L Chloride (98-107) mmol/L Carbon Dioxide (22-30) mmol/L Anion Gap mmol/L BUN (9-20) mg/dL Creatinine (0.66-1.25) mg/dL Est GFR (CKD-EPI)AfAm (>60 ml/min/1.73 sqM) Est GFR (CKD-EPI)NonAf (>60 ml/min/1.73 sqM) Glucose (74-99) mg/dL Calcium (8.4-10.2) mg/dL Magnesium (1.6-2.3) mg/dL Total Bilirubin (0.2-1.3) mg/dL AST (17-59) U/L ALT (4-49) U/L Alkaline Phosphatase (38-126) U/L Troponin I (0.000-0.034) ng/mL NT-Pro-B Natriuret Pep pg/mL Total Protein (6.3-8.2) g/dL Albumin (3.5-5.0) g/dL Disposition Clinical Impression: Dizziness, Thrush Narrative: Please return to the Emergency Department if symptoms worsen or any other concerns. Disposition: HOME SELF-CARE Condition: Good Instructions (If sedation given, give patient instructions): Oral Candidiasis (ED) Prescriptions: Nystatin [Nystatin Oral Susp] 400,000 unit PO QID #64 ml Is patient prescribed a controlled substance at d/c from ED?: No Referrals: Zully Tian MD [Primary Care Provider] - 1-2 days Time of Disposition: 16:40
[2024-03-10 14:03] VITALS: RESP 18
[2024-03-10 14:11] LABS: Basophils % (A) 1 %; Eosinophils # (A) 0.1 k/uL (0-0.7); Eosinophils % (A) 1 %; HCT 40.1 % (39.0-53.0); HGB 13.3 gm/dL (13.0-17.5); Lymphocytes # (A) 1.2 k/uL (1.0-4.8); Lymphocytes % (A) 16 %; MCH 32.2 pg (25.0-35.0); MCHC 33.1 g/dL (31.0-37.0); MCV 97.3 fL (80.0-100.0); Mean Platelet Volume 8.4; Monocytes # (A) 0.6 k/uL (0-1.0); Monocytes % (A) 8 %; Neutrophils # (A) 5.5 k/uL (1.3-7.7); Neutrophils % (A) 73 %; Platelet Count 187 k/uL (150-450); RBC 4.12 m/uL (4.30-5.90); RDW 13.9 % (11.5-15.5); WBC 7.5 k/uL (3.8-10.6)
--- NOTE | 2024-03-10 14:53 | XR ---
EXAMINATION TYPE: XR chest 2V DATE OF EXAM: 03/10/2024 2:48 PM CLINICAL INDICATION:Male, 73 years old with history of palpitations; [facility] COMPARISON: Chest radiographs from 05/29/2023 TECHNIQUE: XR chest 2V Frontal and lateral views of the chest. FINDINGS: Lungs/Pleura: There is no evidence of pleural effusion, focal consolidation, or pneumothorax. Pulmonary vascularity: Unremarkable. Heart/mediastinum: Cardiomediastinal silhouette is unremarkable. Atherosclerotic calcifications are seen in the aorta. Musculoskeletal: No acute osseous pathology. Median sternotomy wires identified. IMPRESSION: No acute cardiopulmonary disease/process.
[2024-03-10 14:56] LABS: INR 1.1 (<1.2); Partial Thromboplastin Time 24.7 sec (22.0-30.0); Prothrombin Time 11.8 sec (10.0-12.5)
[2024-03-10 15:12] LABS: ALT 27 U/L (4-49); AST 37 U/L (17-59); African American GFR (CKD) >90 (>60 ml/min/1.73 sqM); Albumin 4.2 g/dL (3.5-5.0); Alkaline Phosphatase 124 U/L (38-126); Anion Gap 11 mmol/L; Blood Urea Nitrogen 21 mg/dL (9-20); Calcium 9.8 mg/dL (8.4-10.2); Carbon Dioxide 22 mmol/L (22-30); Chloride 106 mmol/L (98-107); Glucose 122 mg/dL (74-99); Magnesium 1.6 mg/dL (1.6-2.3); Non-African American GFR(CKD) 89 (>60 ml/min/1.73 sqM); Potassium 4.2 mmol/L (3.5-5.1); Sodium 139 mmol/L (137-145); Total Bilirubin 1.7 mg/dL (0.2-1.3); Total Protein 7.4 g/dL (6.3-8.2)
[2024-03-10 15:19] LABS: NT-Pro-B-Type Natriuretic Pept 1440 pg/mL
--- NOTE | 2024-03-10 16:07 | CT ---
EXAMINATION TYPE: CT brain wo con CT DLP: 1271.7 mGycm, Automated exposure control for dose reduction was used. DATE OF EXAM: 03/10/2024 3:58 PM COMPARISON: None. CLINICAL INDICATION:Male, 73 years old with history of dizziness, dizziness TECHNIQUE: Brain: Axial CT images of the brain were obtained with coronal and sagittal reformats created and rev iewed. Contrast used: None. Oral contrast used: None. FINDINGS: Brain: Extra-axial spaces: No abnormal extra-axial fluid collections. Ventricular system: Within normal limits Cerebral parenchyma: No acute intraparenchymal hemorrhage or mass effect. The bettencourt-white junction is well differentiated. Scattered hypoattenuating areas are seen within the white matter. Cerebellum: Remote left cerebellar hemisphere infarct. Remote right lacunar injury involving the basa l ganglia. Mass effect: No evidence of midline shift. Intracranial vasculature: unremarkable Soft tissues: Normal. Calvarium/osseous structures: No depressed skull fracture. Paranasal sinuses and mastoid air cells: Mild scattered paranasal sinus disease. Visualized orbits: Orbital contents are intact. IMPRESSION: 1. No acute intracranial process. 2. Remote right basal ganglia and left cerebellar infarcts.
[2024-03-10 17:22] VITALS: BP 150/91; PULSE 84; TEMP 98.5
== END 2024-03-10 16:55 | disposition home or self-care (01) ==
LOC: EC 13:25
DX: R42 Dizziness and giddiness (principal); B37.9 Candidiasis, unspecified; I10 Essential (primary) hypertension; I25.10 Atherosclerotic heart disease of native coronary artery without angina pectoris; Z88.0 Allergy status to penicillin
CPT/HCPCS: 36415; 70450; 71046; 80053; 83735; 83880; 84484; 85025; 85610; 85730; 93005; 99284